=== PATIENT | female | born 1965 | race Caucasian/White ===

== ENCOUNTER 2018-06-05 20:04 | Observation (INO) | payer MEDICARE, MEDICAID, SELFPAY ==
[2018-06-05 20:06] VITALS: BP 109/57; PULSE 137; RESP 18; TEMP 36.8; O2SAT 98; BMI 29.2
--- NOTE | 2018-06-05 20:44 | ED.VIS.GEN ---
History of Present Illness Chief Complaint: General Illness Informant: Patient Onset: Today Timing: Intermittent Quality: Hemoptysis, epistaxis and generalized weakness Current Severity: Not applicable presently no bleeding or hemoptysis Maximum Severity: Mild Worsened by: Nothing Relieved by: Nothing Associated Symptoms: Rash Narrative: Middle-aged woman with metastatic colon cancer who presents with epistaxis, hemoptysis rash generalized weakness and believes she is dehydrated. She was seen on Wednesday at [place] and received IV fluids. Case was discussed with her oncologist Dr. Nicholas. She is on Xarelto because of pulmonary embolus. She denies fever, chills night sweats she denies shortness of breath but does report dyspnea on exertion. She denies chest pain. She denies abdominal pain or flank pain. She denies leg pain, swelling or discoloration. Prior similar symptoms: Yes Recent Illness/Hospitalization: Yes Past Medical History - Allergies and Home Meds Allergies/Adverse Reactions: Allergies latex Allergy (Verified 06/05/18 20:10) Rash Primary Care Physician: Mani Manzano MD [Primary Care Provider] - Past Medical History: - - Colon cancer with metastasis, pulmonary embolus Lives: Spouse/ Significant Other Smoking Status: Former smoker Alcohol: None Drugs: None Review of Systems General: Denies: Chills, Fever, Sweats Eyes: Denies: Visual changes - bilaterally, Blurred Vision - bilaterally, Diplopia ENT: Denies: Bilateral ear pain, Rhinorrhea, Sore throat Cardiovascular: Denies: Chest pain, Palpitations, Heart racing Respiratory: Reports: Cough - Patient reports hemoptysis.. Denies: Dyspnea, Dyspnea on exertion Gastrointestinal: Reports: - - She denies hematemesis.. Denies: Abdominal pain, Nausea, Vomiting, Diarrhea, Melena, Hematochezia Genitourinary: Denies: Dysuria, Hematuria, Frequency Musculoskeletal: Denies: Myalgias, Arthralgias, Back pain, Extremity Pain Skin: Denies: Rash, Wounds Neurological: Denies: Headache, Weakness, Numbness Psych: Reports: Depression Hematologic: Reports: Easy bruising, Easy bleeding Allergy: Denies: Uticaria, Swelling of the mouth Physical Exam Vital Signs/Narrative: Vital Signs Temp Pulse Resp BP Pulse Ox 06/05/18 20:06 98.3 F 137 H 18 109/57 L 98 Inital Vital Signs reviewed: Yes General: Well nourished, Well developed, No Acute Distress Head: Normocephalic, Atraumatic Eyes: Perrl, EOMI. Negative for: Scleral icterus ENT: No rhinorrhea, TM's clear, Dry mucous membranes Neck: Supple, Nontender, No lymphadenopathy, No JVD, - Cardiovascular: Regular rhythm, No murmurs, Normal S1, Normal S2, Tachycardia Respiratory: No distress, Chest nontender, Rales, Diminished Abdomen: Soft, Nontender, Nondistended, Normal bowel sounds, No masses Back: Nontender, Normal Inspection Extremities: Nontender, No edema, - - There is no asymmetry, swelling, discoloration, leg vein distention, palpable cords or tenderness along the distribution of the deep venous system. Skin: Normal color, No rash. Negative for: Cyanosis, Jaundice Neurological: Alert, Oriented x3, Cranial nerves II-XII grossly intact, Normal Strength, Normal Sensation Psychological: Normal affect, Normal Mood Diagnostic/Tx/Re-eval Chest X-Ray - ED: 2 View, Read by ED Physician, Normal, Heart, Bony Structures, - - There is a right hilar mass that is new since November 13, 2016. Port is noted to be in proper position. There is no evidence of effusion or pneumothorax. 06/05/18 20:56 Chest PA and Lateral [RAD] Stat Laboratory Results 06/05/18 06/05/18 20:40 20:40 WBC 3.8 L RBC 5.11 Hgb 13.4 Hct 39.9 MCV 78.1 L MCH 26.2 L MCHC 33.6 RDW 13.4 RDW Differential 37.8 Plt Count 80 L MPV 8.9 Immature Gran % (Auto) 0.300 Neut % (Auto) 63.0 Lymph % (Auto) 11.2 L [place] % (Auto) 4.4 Eos % (Auto) 21.1 H Baso % (Auto) 0.0 Absolute Neuts (auto) 2.4 Absolute Lymphs (auto) 0.43 L Sodium 136 Potassium 3.4 L Chloride 103 Carbon Dioxide 25.0 Anion Gap 8 BUN 11 Creatinine 0.69 Estim Creat Clear Calc 81.42 Est GFR (MDRD) Af Amer 114 Est GFR (MDRD) Non-Af 94 BUN/Creatinine Ratio 15.9 Glucose 134 H Calcium 8.3 L PTT is 98.8. PT and INR 1.5 and 1.7 respectively. This may be secondary to Xarelto. Redraw to confirm. - Medical Decision Making With history of colon cancer tachycardia hemoptysis differential includes pulmonary embolus, pneumonia, bronchitis with hemoptysis, need to assess for DIC. Chest x-rays obtained to assess for pneumonia. If chest x-ray is unremarkable will obtain CTA to assess for pulmonary embolus. CBC was obtained to assess white count differential and H&H since she has history of anemia. Basic medical panel was obtained to assess electrolyte and more importantly renal function. Case was discussed with her oncologist Dr. Christopher Nicholas. He recommended discontinuing the chemo medication and Xarelto. Further observation with repeat CBC to assess H&H, white count and platelets. He will see her in the morning. Therefore, will page hospitalist for 23 observation for hemoptysis and epistaxis this most likely is a complication of her chemo medication and Xarelto. She does have history of pulmonary embolus. The mass noted on x-ray is not new. 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
[2018-06-05 20:46] VITALS: BP 105/79; PULSE 119; RESP 18; TEMP 36.8; O2SAT 98
[2018-06-05] MEDS: 0.9% Normal Saline 1,000 ML 1000 ML IV (20:52)
--- NOTE | 2018-06-05 20:56 | RAD_ITS ---
STUDY: X-RAY CHEST REASON FOR EXAM: Female, 53 years old. Weakness. TECHNIQUE: PA and lateral views of the chest. COMPARISON: November 13, 2016 FINDINGS: There is a new 2.8 x 2.7 spiculated opacity within the right suprahilar region. There is a Mediport in place terminating within the superior vena cava. Normal size heart. Normal mediastinum and terrell. Normal visualized pulmonary arteries. Normal visualized aortic arch and descending thoracic aorta. Normal visualized thoracic spine. Normal visualized ribs, clavicles, and shoulders. There is no demonstrated abnormality of the visualized soft tissue structures of the upper abdomen. RAD/Chest PA and Lateral IMPRESSION: Spiculated nodular opacity within the right suprahilar region suspicious for an underlying malignancy. Electronically Signed: Laya Resendiz MD at 21:38 EDT Tel , Service support ,
[2018-06-05 21:01] LABS: International Normalized Ratio 1.7
[2018-06-05 21:01] LABS: Absolute Lymphocyte Count 0.43 X10^3/ul (0.83-4.51); Absolute Neutrophil Count 2.4 X10^3/uL (2.0-7.7); Eosinophil# 0.81 X10^3/uL; Eosinophils% 21.1 % (0-5); Hematocrit 39.9 % (37-47); Hemoglobin 13.4 g/dl (12.0-15.0); Lymphocyte # 0.43 X10^3/ul (4.0); Lymphocyte % 11.2 % (19-41); Mean Corp Hgb Conc 33.6 g/gl (32-36); Mean Corpuscular Hgb 26.2 pg (27.0-32.0); Mean Corpuscular Volume 78.1 fL (81-99); Mean Platelet Vol. 8.9 fl (6.2-12.0); Monocyte# 0.17 X10^3/uL; Monocyte% 4.4 % (0-10); Neutrophil # 2.42 X10^3/uL (2.7-7.7); Platelet Count 80 K/mm3 (150-450); RBC Distribution Width CV 13.4 % (11.6-14.6); RBC Distribution Width SD 37.8 fl (35.1-43.9); Red Blood Count 5.11 M/mm3 (4.2-5.4); White Blood Count 3.8 K/mm3 (4.4-11.0)
[2018-06-05 21:03] LABS: Differential Indicated SCAN CRITERIA MET; POSITIVE COUNT NO; POSITIVE DIFFERENTIAL YES; POSITIVE MORPHOLOGY NO
[2018-06-05 21:07] LABS: Anion Gap 8 (5-15); BUN 11 mg/dL (7-18); BUN/Creat Ratio 15.9 RATIO (10-20); Calcium,Total 8.3 mg/dL (8.5-10.1); Chloride 103 mmol/L (98-107); Creatinine, Serum 0.69 mg/dL (0.55-1.02); EST Glomerular Filtration Rate 94 mL/min (>60); Est Glom Filt Rate - Afr Amer 114 mL/min (>60); Estimated Creatinine Clearance 81.42 ml/min; Glucose 134 mg/dL (74-106); Potassium 3.4 mmol/L (3.5-5.1); Sodium Level 136 mmol/L (136-145)
[2018-06-05 21:16] LABS: Differential Comment SCANNED
[2018-06-05 21:30] LABS: Partial Thromboplast Time 47.4 Seconds (24.1-36.2)
[2018-06-05 21:43] LABS: Prothrombin Time (Protime)PT. 19.4 SECONDS (11.7-14.9)
[2018-06-05 23:03] VITALS: BP 111/80; PULSE 112; RESP 14; TEMP 37.6; O2SAT 97
--- NOTE | 2018-06-05 23:22 | PCM.HP.STD ---
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 She states that she has had colon cancer with mets to the lung and intrathoracic lymph nodes for the last 6 to 7 years. She initially was diagnosed at an advanced age and has been undergoing chemotherapy ever since. She started a new chemotherapy agent and it was also started on Xarelto for history of pulmonary embolism. Since she started the new chemotherapy she has had a burning sensation on her right foot as well as a generalized rash. Today she coughed and coughed up a blood clot and went to blow her nose and had large blood clot there as well. She presented to the ER, without lightheadedness, dizziness, chest pain, shortness of breath. However on lab work she was found to have a lately count of 80,000 and the case was discussed with her oncologist who recommended admission for overnight observation. Past Medical History Allergies latex Allergy (Verified 06/05/18 20:10) Rash Home Medications: Ambulatory Orders Medication Instructions Recorded Hydrocodone/Acetaminophen 2 tab PO Q6H PRN 11/13/16 [Hydrocodon-Acetaminophen 5-325] Lorazepam [Ativan] 1 tab PO Q8H PRN 11/13/16 Nystatin 5 ml PO 4X/DAY 11/13/16 Rivaroxaban [Xarelto] 1 tab PO DAILY 11/13/16 Surgical History: cholecystectomy Lives: Spouse/ Significant Other Smoking Status: Former smoker Alcohol: None Drugs: None - *Family History Maternal History Items: No pertinent history Paternal History Items: No pertinent history Review of Systems Constitutional: Denies: Chills, Fever, Weight Change HEENT: Reports: Nasal bleeding. Denies: Head Aches, Sinus Congestion, Sinus Drainage Cardiovascular: Denies: Chest Pain, Palpitations Respiratory: Reports: Hemoptysis. Denies: Cough, Shortness of breath at rest, Sputum production Gastrointestinal: Denies: Abdominal Pain, Nausea, Vomiting Genitourinary: Denies: Dysuria Musculoskeletal: Reports: Foot Pain. Denies: Joint Pain, Joint Tenderness Skin: Reports: Rash. 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 (Acute) Thrombocytopenia (Acute) - Physical Exam General: Alert, Oriented x3, Cooperative, No apparent distress HEENT: Atraumatic, PERRLA, EOMI, Normocephalic Oral: Dry Mucosa Neck: Supple, No JVD Lungs: Clear to auscultation, Normal air movement, No rhonchi, No wheeze, No rales Cardiovascular: Regular rate, Regular Rhythm, Normal S1, Normal S2, No murmurs Abdomen: Soft, Non-Distended, No Hepato-splenomegaly, Tender - Chronic mild tenderness to upper abdomen Extremities: No edema, Capillary Refill Less than 3 Seconds, - - Of burning pain sensation on the bottom of her right foot Skin: Rash Present - Blanching petechial rash on both legs Neurological: Neuro grossly intact, Sensory exam intact to light touch and pain Psych/Mental Status: Normal Affect, Appropriate Vital Signs Temp Pulse Resp BP Pulse Ox 99.6 F H 112 H 14 111/80 97 06/05/18 23:03 06/05/18 23:03 06/05/18 23:03 06/05/18 23:03 06/05/18 23:03 Oxygen Delivery Method Room Air Weight: 170 lb Body Mass Index (BMI) 29.2 Laboratory Tests Past 24 Hrs 06/05/18 06/05/18 06/05/18 20:40 20:40 21:14 WBC 3.8 L RBC 5.11 Hgb 13.4 Hct 39.9 MCV 78.1 L MCH 26.2 L MCHC 33.6 RDW 13.4 RDW Differential 37.8 Plt Count 80 L MPV 8.9 Immature Gran % (Auto) 0.300 Neut % (Auto) 63.0 Lymph % (Auto) 11.2 L [place] % (Auto) 4.4 Eos % (Auto) 21.1 H Baso % (Auto) 0.0 Absolute Neuts (auto) 2.4 Absolute Lymphs (auto) 0.43 L Total Counted Not Reportable Differential Comment SCANNED PT 19.4 H INR 1.7 APTT 47.4 H Sodium 136 Potassium 3.4 L Chloride 103 Carbon Dioxide 25.0 Anion Gap 8 BUN 11 Creatinine 0.69 Estim Creat Clear Calc 81.42 Est GFR (MDRD) Af Amer 114 Est GFR (MDRD) Non-Af 94 BUN/Creatinine Ratio 15.9 Glucose 134 H Calcium 8.3 L Assessment/Plan All Active Problems Hemoptysis (Acute) Epistaxis (Acute) FPC current use of anticoagulant (Acute) Colon cancer 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 Generalized blanching macular rash/stage IV colon cancer undergoing chemotherapy/thrombocytopenia/hemoptysis and epistaxis/history of PE/RLE neuropathy -Her rash and her thrombocytopenia as well as her right foot pain is likely related to this new chemotherapy agent that she is on. -The pain description on the right foot as well as a sensation of feeling of burning fits with chemotherapy neuropathy. -We will hold her chemotherapy as well as her Xarelto given the hemoptysis and epistaxis -Consult to oncology -Repeat CBC in the morning to monitor thrombocytopenia DVT: Ambulation Code Visit OBSV E&M: [id number] Initial observation care L2
[2018-06-06] VITALS (7 sets, daily range): BP systolic 102–117; BP diastolic 60–80; PULSE 94–118; RESP 15–18; TEMP 36.5–37; O2SAT 97–98; BMI 29.3; BMI 29.4
[2018-06-06] MEDS: Acetaminophen 325 MG Tablet 650 MG PO (03:31)
[2018-06-06] MEDS: 0.9% NaCl VAD Flush 10 ML IV ×2 (04:55→17:20)
[2018-06-06 05:19] LABS: Anion Gap 6 (5-15); BUN 9 mg/dL (7-18); BUN/Creat Ratio 16.3 RATIO (10-20); Calcium,Total 8.3 mg/dL (8.5-10.1); Chloride 106 mmol/L (98-107); Creatinine, Serum 0.55 mg/dL (0.55-1.02); EST Glomerular Filtration Rate 122 mL/min (>60); Est Glom Filt Rate - Afr Amer 148 mL/min (>60); Estimated Creatinine Clearance 102.15 ml/min; Glucose 120 mg/dL (74-106); Potassium 3.8 mmol/L (3.5-5.1); Sodium Level 140 mmol/L (136-145)
[2018-06-06 05:27] LABS: Absolute Lymphocyte Count 0.48 X10^3/ul (0.83-4.51); Absolute Neutrophil Count 1.6 X10^3/uL (2.0-7.7); Basophil# 0.01 X10^3/uL; Basophil% 0.3 % (0-1); Eosinophil# 0.68 X10^3/uL; Eosinophils% 22.4 % (0-5); Hematocrit 35.8 % (37-47); Hemoglobin 11.9 g/dl (12.0-15.0); Lymphocyte # 0.48 X10^3/ul (4.0); Lymphocyte % 15.8 % (19-41); Mean Corp Hgb Conc 33.2 g/gl (32-36); Mean Corpuscular Hgb 26.2 pg (27.0-32.0); Mean Corpuscular Volume 78.7 fL (81-99); Monocyte# 0.29 X10^3/uL; Monocyte% 9.5 % (0-10); Neutrophil # 1.57 X10^3/uL (2.7-7.7); Neutrophil % 51.7 % (47-70); Platelet Count 76 K/mm3 (150-450); RBC Distribution Width CV 13.7 % (11.6-14.6); RBC Distribution Width SD 38.8 fl (35.1-43.9); Red Blood Count 4.55 M/mm3 (4.2-5.4)
[2018-06-06 05:45] LABS: Differential Indicated SCAN CRITERIA MET; POSITIVE COUNT NO; POSITIVE DIFFERENTIAL YES; POSITIVE MORPHOLOGY NO
[2018-06-06 06:51] LABS: Differential Comment SCANNED
--- NOTE | 2018-06-06 09:44 | CASEMGMT ---
Social Work Note Per production operations inspector questions, pt hasn't completed advanced directives and doesn't want information. Cristina Fernandez ALTERATION TAILOR, SLEEVE IRONER
[2018-06-06] MEDS: predniSONE 20 MG Tablet 60 MG PO (12:15)
--- NOTE | 2018-06-06 13:44 | CON.PCM_ITS ---
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 Salazar regarding patient with metastatic adenocarcinoma (GI origin) who presented with thrombocytopenia, rash & epistaxis. My final recommendation will be communicated to Dr. Novoa and also by electronic medical records. - Reason for Consult Generalized rash, thrombocytopenia and epistaxis History of Present Illness Date of Admission: 06/05/18 Chief Complaint: Hemoptysis and epistaxis secondary to thrombocytopenia; rash, hand-foot (dermatitis) symptoms The patient is a 53 year old F with PMH as below who presents to [facility] after having an episode of hemoptysis and epistaxis. She states that she has had colon cancer with mets to the lung and intrathoracic lymph nodes for the last 6 to 7 years. She initially was diagnosed at an advanced age and has been undergoing chemotherapy ever since. She started STAVAGA 2 weeks ago, and it was also on Xarelto for history of upper extremity DVT. Since she started the new drug she has had a burning sensation on her right foot as well as a generalized rash. She was seen in the emergency room earlier last week for fatigue, her blood pressure is normal. Today, she coughed and coughed up a blood clot and went to blow her nose and had large blood clot there as well. She presented to the ER, without lightheadedness, dizziness, chest pain, shortness of breath. However on lab work she was found to have a lately count of 80,000. Her treatment was held yesterday and we stop her Xarelto today. He denies any itching on her skin but does still complain of sores on the bottom of her feet. He has no more bleeding issues since yesterday. Past Medical History Allergies latex Allergy (Verified 06/05/18 20:10) Rash Home Medications: Ambulatory Orders Medication Instructions Recorded Hydrocodone/Acetaminophen 2 tab PO Q6H PRN 11/13/16 [Hydrocodon-Acetaminophen 5-325] Lorazepam [Ativan] 1 tab PO Q8H PRN 10/06/17 Nystatin 5 ml PO 4X/DAY 11/13/16 Rivaroxaban [Xarelto] 1 tab PO DAILY 11/13/16 Surgical History: cholecystectomy Lives: Spouse/ Significant Other Smoking Status: Former smoker Alcohol: None Drugs: None - *Family History Maternal History Items: No pertinent history Paternal History Items: No pertinent history Review of Systems Constitutional: Denies: Chills, Fever, Weight Change HEENT: Reports: Nasal bleeding. Denies: Head Aches, Sinus Congestion, Sinus Drainage Cardiovascular: Denies: Chest Pain, Palpitations Respiratory: Reports: Hemoptysis. Denies: Cough, Shortness of breath at rest, Sputum production Gastrointestinal: Denies: Abdominal Pain, Nausea, Vomiting Genitourinary: Denies: Dysuria Musculoskeletal: Reports: Foot Pain. Denies: Joint Pain, Joint Tenderness Skin: Reports: Rash. 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 (Acute) Thrombocytopenia (Acute) - Physical Exam General: Alert, Oriented x3, Cooperative, No apparent distress HEENT: Atraumatic, PERRLA, EOMI, Normocephalic Oral: Dry Mucosa Neck: Supple, No JVD Lungs: Clear to auscultation, Normal air movement, No rhonchi, No wheeze, No rales Cardiovascular: Regular rate, Regular Rhythm, Normal S1, Normal S2, No murmurs Abdomen: Soft, Non-Distended, No Hepato-splenomegaly, Tender - Chronic mild tenderness to upper abdomen Extremities: No edema, Capillary Refill Less than 3 Seconds, - - Of burning pain sensation on the bottom of her right foot Skin: Generalized rash; no petechiae. No ecchymosis. Increased erythema on her soles, no skin exfoliation. Neurological: Neuro grossly intact, Sensory exam intact to light touch and pain Psych/Mental Status: Normal Affect, Appropriate Vital Signs Temp Pulse Resp BP Pulse Ox 99.6 F H 112 H 14 111/80 97 06/05/18 23:03 06/05/18 23:03 06/05/18 23:03 06/05/18 23:03 06/05/18 23:03 Oxygen Delivery Method Room Air Weight: 170 lb Body Mass Index (BMI) 29.2 Laboratory Tests Past 24 Hrs 06/05/18 06/05/18 06/05/18 20:40 20:40 21:14 WBC 3.8 L RBC 5.11 Hgb 13.4 Hct 39.9 MCV 78.1 L MCH 26.2 L MCHC 33.6 RDW 13.4 RDW Differential 37.8 Plt Count 80 L MPV 8.9 Immature Gran % (Auto) 0.300 Neut % (Auto) 63.0 Lymph % (Auto) 11.2 L [place] % (Auto) 4.4 Eos % (Auto) 21.1 H Baso % (Auto) 0.0 Absolute Neuts (auto) 2.4 Absolute Lymphs (auto) 0.43 L Total Counted Not Reportable Differential Comment SCANNED PT 19.4 H INR 1.7 APTT 47.4 H Sodium 136 Potassium 3.4 L Chloride 103 Carbon Dioxide 25.0 Anion Gap 8 BUN 11 Creatinine 0.69 Estim Creat Clear Calc 81.42 Est GFR (MDRD) Af Amer 114 Est GFR (MDRD) Non-Af 94 BUN/Creatinine Ratio 15.9 Glucose 134 H Calcium 8.3 L Assessment/Plan All Active Problems Hemoptysis (Acute) Epistaxis (Acute) long-term current use of anticoagulant (Acute) Colon cancer 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 Nicholas. -Generalized rash, hand-foot (dermatitis), thrombocytopenia associated with her treatment. -History of DVT of her upper extremity currently resolved on Xarelto Recommendations: -Stop Xarelto because of bleeding and thrombocytopenia -STARVAGA held till she see Dr. Nicholas later this week. -Topical steroid/clindamycin topical or short course of oral Solu-Medrol taper over 5 to 7 days. -Lotion on feet -May resume treatment at lower dose when excessive toxicity resolved. cc: Dr. Christopher Nicholas, Dr. Neville Salazar, Dr. Mani Manzano
--- NOTE | 2018-06-06 16:52 | PCM.DC ---
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 Allergies/Adverse Reactions: Allergies famotidine [From Pepcid] Allergy (Verified 06/06/18 13:24) Shortness of breath latex Allergy (Verified 06/05/18 20:10) Rash Medications to take at Discharge Hydrocodone/Acetaminophen [Hydrocodone-Acetamin 5-325 mg] 1 tab PO Q6H PRN 11/13/16 Lorazepam [Ativan] 1 tab PO Q8H PRN 11/13/16 DiphenhydrAMINE [Benadryl] 25 mg PO Q4H PRN #1 capsule 06/06/18 predniSONE tablet 2 tab PO DAILY@0800 #8 tablet 06/06/18 The following prescriptions were given: DiphenhydrAMINE [Benadryl] 25 mg PO Q4H PRN #1 capsule PRN Reason: itching. rash predniSONE tablet 2 tab PO DAILY@0800 #8 tablet Primary Care Physician: Mani Manzano MD [Primary Care Provider] - Within 2 Weeks Test Results: Test results from this visit will be discussed in further detail at your follow-up appointment, if applicable. Please Follow Up With: Christopher Nicholas, DO When: this week
--- NOTE | 2018-06-06 16:55 | DCINST_ITS ---
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 Allergies/Adverse Reactions: Allergies famotidine [From Pepcid] Allergy (Verified 06/06/18 13:24) Shortness of breath latex Allergy (Verified 06/05/18 20:10) Rash Medications to take at Discharge Hydrocodone/Acetaminophen [Hydrocodone-Acetamin 5-325 mg] 1 tab PO Q6H PRN 11/13/16 Lorazepam [Ativan] 1 tab PO Q8H PRN 11/13/16 DiphenhydrAMINE [Benadryl] 25 mg PO Q4H PRN #1 capsule 06/06/18 predniSONE tablet 2 tab PO DAILY@0800 #8 tablet 06/06/18 The following prescriptions were given: DiphenhydrAMINE [Benadryl] 25 mg PO Q4H PRN #1 capsule PRN Reason: itching. rash predniSONE tablet 2 tab PO DAILY@0800 #8 tablet Primary Care Physician: Mani Manzano MD [Primary Care Provider] - Within 2 Weeks Test Results: Test results from this visit will be discussed in further detail at your follow- up appointment, if applicable. Please Follow Up With: Christopher Nicholas, DO When: this week
--- NOTE | 2018-06-06 16:55 | PCM.DC.SUM ---
Discharge Date and Diagnosis - Problem List Patient Problems: Active and Suspected Problems Drug rash (Acute) Hemoptysis (Acute) Epistaxis (Acute) Thrombocytopenia (Acute) Secondary to chemotherapy Date of Admission: 06/05/18 Date of Discharge: 06/06/18 - Primary Discharge Diagnosis Active and Suspected Problems Drug rash (Acute) Hemoptysis (Acute) Epistaxis (Acute) Thrombocytopenia (Acute) Secondary to chemotherapy - Secondary Discharge Diagnosis Chronic Problems [facility] current use of anticoagulant (Chronic) History of DVT of the upper extremity Colon cancer metastasized to intrathoracic lymph node (Chronic) Hospital Course and Treatment Imaging Results: Clinical Impression(s) from Imaging Studies Chest X-Ray 06/05/18 20:56 IMPRESSION: Spiculated nodular opacity within the right suprahilar region suspicious for an underlying malignancy. Electronically Signed: Laya Resendiz MD at 21:38 EDT Tel , Service support , Shobha Bledsoe: oncology. Operations: None Procedures: None Summary of Care Provided: The patient is a 53 year old F resents with rash, hemoptysis and epistaxis. The mild this is related with her epistaxis and epistaxis likely attributable to thrombus cytopenia but also concomitant Xarelto use. That resolved spontaneously. Discussed with Dr. Nicholas recommend holding off on Xarelto for the time being. Patient also developed a rash most notably on her arms but then progressed elsewhere particular on her feet. Rash was consistent with a drug rash and more particularly a hand/foot/skin rash that is commonly associated with her immunotherapy, Stirviga. Discussed with Dr. García and he is going to hold off on that medication. Patient was started on prednisone today and the patient has noted some improvement. I discussed with the patient the risks of Perez-Sarthak's and toxic epidermal necrolysis and expanded her that if her rash does get worse or if she has signs or symptoms of angioedema to notify physician or return to the emergency room. [] Patient Problems: Active and Suspected Problems Drug rash (Acute) Hemoptysis (Acute) Epistaxis (Acute) Thrombocytopenia (Acute) Secondary to chemotherapy - Physical Exam General: Alert, No apparent distress HEENT: Atraumatic, Normocephalic Oral: Moist Mucosa, No Gingival or Mucosal Lesions/ Ulcerations Skin: - - Maculopapular rash noted on upper extremities, palms of her hands, soles of her feet. On reevaluation appeared to be a little more muted but still diffuse. Psych/Mental Status: Normal Affect, Appropriate Vital Signs Temp Pulse Resp BP Pulse Ox 37.0 C 99 18 111/74 98 06/06/18 13:40 06/06/18 13:40 06/06/18 13:40 06/06/18 13:40 06/06/18 13:40 Oxygen Delivery Method Room Air Weight: 77.6 kg Body Mass Index (BMI) 29.3 Intake and Output for Last 24 Hours 06/04/18 06/05/18 06/06/18 23:59 23:59 23:59 Intake Total 460 / 460 Balance 460 / 460 Laboratory Tests Past 24 Hrs 06/05/18 06/05/18 06/05/18 20:40 20:40 21:14 WBC 3.8 L RBC 5.11 Hgb 13.4 Hct 39.9 MCV 78.1 L MCH 26.2 L MCHC 33.6 RDW 13.4 RDW Differential 37.8 Plt Count 80 L MPV 8.9 Immature Gran % (Auto) 0.300 Neut % (Auto) 63.0 Lymph % (Auto) 11.2 L [place] % (Auto) 4.4 Eos % (Auto) 21.1 H Baso % (Auto) 0.0 Absolute Neuts (auto) 2.4 Absolute Lymphs (auto) 0.43 L Total Counted Not Reportable Differential Comment SCANNED Diff Path Review PT 19.4 H INR 1.7 APTT 47.4 H Sodium 136 Potassium 3.4 L Chloride 103 Carbon Dioxide 25.0 Anion Gap 8 BUN 11 Creatinine 0.69 Estim Creat Clear Calc 81.42 Est GFR (MDRD) Af Amer 114 Est GFR (MDRD) Non-Af 94 BUN/Creatinine Ratio 15.9 Glucose 134 H Calcium 8.3 L 06/06/18 06/06/18 04:53 04:53 WBC 3.0 L RBC 4.55 Hgb 11.9 L Hct 35.8 L MCV 78.7 L MCH 26.2 L MCHC 33.2 RDW 13.7 RDW Differential 38.8 Plt Count 76 L MPV 9.0 Immature Gran % (Auto) 0.300 Neut % (Auto) 51.7 Lymph % (Auto) 15.8 L [place] % (Auto) 9.5 Eos % (Auto) 22.4 H Baso % (Auto) 0.3 Absolute Neuts (auto) 1.6 L Absolute Lymphs (auto) 0.48 L Total Counted Not Reportable Differential Comment SCANNED Diff Path Review May foll PT INR APTT Sodium 140 Potassium 3.8 Chloride 106 Carbon Dioxide 28.0 Anion Gap 6 BUN 9 Creatinine 0.55 Estim Creat Clear Calc 102.15 Est GFR (MDRD) Af Amer 148 Est GFR (MDRD) Non-Af 122 BUN/Creatinine Ratio 16.3 Glucose 120 H Calcium 8.3 L Discharge Diet: No Restrictions Discharge Activity: Return to Normal Activity Call your doctor if you observe: Fever of 101 or Higher, - - worsening rash. Home Medications: Medications to take at Discharge Hydrocodone/Acetaminophen [Hydrocodone-Acetamin 5-325 mg] 1 tab PO Q6H PRN 11/13/16 Lorazepam [Ativan] 1 tab PO Q8H PRN 11/13/16 DiphenhydrAMINE [Benadryl] 25 mg PO Q4H PRN #1 capsule 06/06/18 predniSONE tablet 2 tab PO DAILY@0800 #8 tablet 06/06/18 Following Prescrptions Were Given to Patient: DiphenhydrAMINE [Benadryl] 25 mg PO Q4H PRN #1 capsule PRN Reason: itching. rash predniSONE tablet 2 tab PO DAILY@0800 #8 tablet Primary Care Physician: Mani Manzano MD [Primary Care Provider] - Within 2 Weeks Please Follow Up With: Christopher Nicholas DO When: this week Disposition: Home Minutes spent on discharge:: 35 Patient Condition:: Fair Medical Necessity - Tobacco Use Smoking Status: Former smoker Meaningful Use Info Meaningful Use Diagnoses (Choose all that apply): None applicable Code Visit OBSV E&M: 37690 Observation care discharge
--- NOTE | 2018-06-06 16:59 | DS.PCM_ITS ---
Discharge Date and Diagnosis - Problem List Patient Problems: Active and Suspected Problems Drug rash (Acute) Hemoptysis (Acute) Epistaxis (Acute) Thrombocytopenia (Acute) Secondary to chemotherapy Date of Admission: 06/05/18 Date of Discharge: 06/06/18 - Primary Discharge Diagnosis Active and Suspected Problems Drug rash (Acute) Hemoptysis (Acute) Epistaxis (Acute) Thrombocytopenia (Acute) Secondary to chemotherapy - Secondary Discharge Diagnosis Chronic Problems [facility] current use of anticoagulant (Chronic) History of DVT of the upper extremity Colon cancer metastasized to intrathoracic lymph node (Chronic) Hospital Course and Treatment Imaging Results: Clinical Impression(s) from Imaging Studies Chest X-Ray 06/05/18 20:56 IMPRESSION: Spiculated nodular opacity within the right suprahilar region suspicious for an underlying malignancy. Electronically Signed: Laya Resendiz MD at 21:38 EDT Tel , Service support , Shobha Bledsoe: oncology. Operations: None Procedures: None Summary of Care Provided: The patient is a 53 year old F resents with rash, hemoptysis and epistaxis. The mild this is related with her epistaxis and epistaxis likely attributable to t hrombus cytopenia but also concomitant Xarelto use. That resolved spontaneously. Discussed with Dr. Nicholas recommend holding off on Xarelto for the time being. Patient also developed a rash most notably on her arms but then progressed elsewhere particular on her feet. Rash was consistent with a drug rash and more particularly a hand/foot/skin rash that is commonly associated with her immunotherapy, Stirviga. Discussed with Dr. García and he is going to hold off on that medication. Patient was started on prednisone today and the patient has noted some improvement. I discussed with the patient the risks of Perez-Sarthak's and toxic epidermal necrolysis and expanded her that if her rash does get worse or if she has signs or symptoms of angioedema to notify physician or return to the emergency room. [] Patient Problems: Active and Suspected Problems Drug rash (Acute) Hemoptysis (Acute) Epistaxis (Acute) Thrombocytopenia (Acute) Secondary to chemotherapy - Physical Exam General: Alert, No apparent distress HEENT: Atraumatic, Normocephalic Oral: Moist Mucosa, No Gingival or Mucosal Lesions/ Ulcerations Skin: - - Maculopapular rash noted on upper extremities, palms of her hands, soles of her feet. On reevaluation appeared to be a little more muted but still diffuse. Psych/Mental Status: Normal Affect, Appropriate Vital Signs Temp Pulse Resp BP Pulse Ox 37.0 C 99 18 111/74 98 06/06/18 13:40 06/06/18 13:40 06/06/18 13:40 06/06/18 13:40 06/06/18 13:40 Oxygen Delivery Method Room Air Weight: 77.6 kg Body Mass Index (BMI) 29.3 Intake and Output for Last 24 Hours 06/04/18 06/05/18 06/06/18 23:59 23:59 23:59 Intake Total 460 / 460 Balance 460 / 460 Laboratory Tests Past 24 Hrs 06/05/18 06/05/18 06/05/18 20:40 20:40 21:14 WBC 3.8 L RBC 5.11 Hgb 13.4 Hct 39.9 MCV 78.1 L MCH 26.2 L MCHC 33.6 RDW 13.4 RDW Differential 37.8 Plt Count 80 L MPV 8.9 Immature Gran % (Auto) 0.300 Neut % (Auto) 63.0 Lymph % (Auto) 11.2 L [place] % (Auto) 4.4 Eos % (Auto) 21.1 H Baso % (Auto) 0.0 Absolute Neuts (auto) 2.4 Absolute Lymphs (auto) 0.43 L Total Counted Not Reportable Differential Comment SCANNED Diff Path Review PT 19.4 H INR 1.7 APTT 47.4 H Sodium 136 Potassium 3.4 L Chloride 103 Carbon Dioxide 25.0 Anion Gap 8 BUN 11 Creatinine 0.69 Estim Creat Clear Calc 81.42 Est GFR (MDRD) Af Amer 114 Est GFR (MDRD) Non-Af 94 BUN/Creatinine Ratio 15.9 Glucose 134 H Calcium 8.3 L 06/06/18 06/06/18 04:53 04:53 WBC 3.0 L RBC 4.55 Hgb 11.9 L Hct 35.8 L MCV 78.7 L MCH 26.2 L MCHC 33.2 RDW 13.7 RDW Differential 38.8 Plt Count 76 L MPV 9.0 Immature Gran % (Auto) 0.300 Neut % (Auto) 51.7 Lymph % (Auto) 15.8 L [place] % (Auto) 9.5 Eos % (Auto) 22.4 H Baso % (Auto) 0.3 Absolute Neuts (auto) 1.6 L Absolute Lymphs (auto) 0.48 L Total Counted Not Reportable Differential Comment SCANNED Diff Path Review May foll PT INR APTT Sodium 140 Potassium 3.8 Chloride 106 Carbon Dioxide 28.0 Anion Gap 6 BUN 9 Creatinine 0.55 Estim Creat Clear Calc 102.15 Est GFR (MDRD) Af Amer 148 Est GFR (MDRD) Non-Af 122 BUN/Creatinine Ratio 16.3 Glucose 120 H Calcium 8.3 L Discharge Diet: No Restrictions Discharge Activity: Return to Normal Activity Call your doctor if you observe: Fever of 101 or Higher, - - worsening rash. Home Medications: Medications to take at Discharge Hydrocodone/Acetaminophen [Hydrocodone-Acetamin 5-325 mg] 1 tab PO Q6H PRN 11/13/16 Lorazepam [Ativan] 1 tab PO Q8H PRN 11/13/16 DiphenhydrAMINE [Benadryl] 25 mg PO Q4H PRN #1 capsule 06/06/18 predniSONE tablet 2 tab PO DAILY@0800 #8 tablet 06/06/18 Following Prescrptions Were Given to Patient: DiphenhydrAMINE [Benadryl] 25 mg PO Q4H PRN #1 capsule PRN Reason: itching. rash predniSONE tablet 2 tab PO DAILY@0800 #8 tablet Primary Care Physician: Mani Manzano MD [Primary Care Provider] - Within 2 Weeks Please Follow Up With: Christopher Nicholas DO When: this week Disposition: Home Minutes spent on discharge:: 35 Patient Condition:: Fair Medical Necessity - Tobacco Use Smoking Status: Former smoker Meaningful Use Info Meaningful Use Diagnoses (Choose all that apply): None applicable Code Visit OBSV E&M: 38562 Observation care discharge
[2018-06-08 15:57] LABS: Pathologist Review Reviewed
== END 2018-06-06 17:40 | disposition home or self-care (01) ==
LOC: ED 22:43 → MS3 23:12
PROVIDERS: Admitting Provider Family Medicine; Emergency Provider Emergency Medicine; Family Provider Family Medicine; PCP Family Medicine
DX: L27.0 Generalized skin eruption due to drugs and medicaments taken internally (principal); T45.515A Adverse effect of anticoagulants, initial encounter; D69.59 Other secondary thrombocytopenia; R04.2 Hemoptysis; T45.1X5A Adverse effect of antineoplastic and immunosuppressive drugs, initial encounter; C18.9 Malignant neoplasm of colon, unspecified; C77.1 Secondary and unspecified malignant neoplasm of intrathoracic lymph nodes; C78.00 Secondary malignant neoplasm of unspecified lung; D68.32 Hemorrhagic disorder due to extrinsic circulating anticoagulants; R04.0 Epistaxis; E86.0 Dehydration; R06.09 Other forms of dyspnea; Z86.718 Personal history of other venous thrombosis and embolism; Z87.891 Personal history of nicotine dependence; Z79.01 Long term (current) use of anticoagulants; Z79.899 Other long term (current) drug therapy; Z86.711 Personal history of pulmonary embolism
CPT/HCPCS: 36591; 71046; 80048; 85025; 85610; 85730; 96361; 96374; 97802; 99218; 99283; A4216; G0378

== ENCOUNTER 2018-09-23 09:47 | Emergency (ER) | payer MEDICARE, MEDICAID, SELFPAY ==
[2018-09-23 09:47] VITALS: BMI 29.2
[2018-09-23 09:49] VITALS: BP 122/105; PULSE 147; RESP 19; TEMP 37.2; O2SAT 95; BMI 29.2
--- NOTE | 2018-09-23 10:12 | EKG12_ITS ---
Test Reason : N/V Blood Pressure : / mmHG Vent. Rate : 138 BPM Atrial Rate : 138 BPM P-R Int : 144 ms QRS Dur : 068 ms QT Int : 352 ms P-R-T Axes : 075 033 078 degrees QTc Int : 533 ms Sinus tachycardia Nonspecific T wave abnormality Abnormal ECG Confirmed by TYLER PATEL, MICHAEL ([id number]), state editor MARIANELA ESPINOSA ([id number]) on 09/27/2018 2:03:52 PM Referred By: NYDIA Confirmed By:JEANNE SCOTT MD
[2018-09-23] MEDS: Ondansetron 4 MG/2 ML Vial IV (10:34)
[2018-09-23] MEDS: 0.9% Normal Saline 1,000 ML 1000 ML IV ×2 (10:35→12:03)
--- NOTE | 2018-09-23 10:36 | ED.DCSUM_ITS ---
History of Present Illness Chief Complaint: Nausea/Vomiting Informant: Patient Onset: Days - Onset of nausea and vomiting September 19. She denies blood or coffee-ground emesis. Last bowel movement today Context: Sudden Onset Timing: Intermittent Quality: Nausea and vomiting Location: Not applicable Current Severity: Mild Maximum Severity: Moderate Worsened by: Nothing Relieved by: Nothing Associated Symptoms: Thirst, dry mouth, rapid heart rate of 170 and orthostatic Narrative: Patient is a 53-year-old woman with history of stage IV colon cancer diagnosed 5 years ago. She states she had no lesions in her colon. She was diagnosed with colon cancer based on genetic markers. She had a large lesion on her thyroid, one near her heart and spine. The thyroid lesion improved markedly after she was started on oral chemo medication by Dr. Nicholas. She denies fever, chills night sweats. She denies URI symptoms. She states she is had a chronic cough since December. She denies dysuria, frequency, urgency or hematuria. She denies abdominal pain. Prior similar symptoms: Yes Recent Illness/Hospitalization: Yes - Past Medical History (1) Hemoptysis Status: Acute (2) Colon cancer metastasized to intrathoracic lymph node Status: Chronic (3) long term current use of anticoagulant Status: Chronic Comment: History of DVT of the upper extremity Past Medical History - Allergies and Home Meds Allergies/Adverse Reactions: Allergies famotidine [From Pepcid] Allergy (Verified 09/23/18 09:48) Shortness of breath latex Allergy (Verified 09/23/18 09:48) Rash Primary Care Physician: Mani Manzano MD [Primary Care Provider] - Prior records reviewed: Yes Surgical History: cholecystectomy Lives: With Family Smoking Status: Never smoker Alcohol: None Drugs: None - Family History Maternal Family History: Reports: No pertinent history Paternal Family History: Reports: No pertinent history Review of Systems General: Reports: Chills, Malaise, Sweats, Weight loss. Denies: Fever Eyes: Denies: Visual changes - bilaterally, Blurred Vision - bilaterally, Diplopia ENT: Denies: Left ear pain, Right ear pain, Rhinorrhea, Sore throat Cardiovascular: Reports: Palpitations. Denies: Chest pain, Heart racing, -, - Respiratory: Denies: Dyspnea, Cough, Dyspnea on exertion Gastrointestinal: Reports: Nausea, Vomiting. Denies: Abdominal pain, Diarrhea, Constipation, Melena, Hematochezia, -, - Genitourinary: Denies: Dysuria, Hematuria, Frequency Musculoskeletal: Denies: Myalgias, Arthralgias, Neck pain, Back pain, Swelling, Extremity Pain, -, - Skin: Denies: Rash, Wounds Neurological: Reports: Weakness. Denies: Headache, Parasthesia, Numbness, -, - Hematologic: Denies: Easy bruising, Easy bleeding Allergy: Denies: Uticaria, Swelling of the mouth, Swelling of the tongue Physical Exam Vital Signs/Narrative: Vital Signs Temp Pulse Resp BP Pulse Ox 09/23/18 09:49 98.9 F 147 H 19 H 122/105 H 95 Inital Vital Signs reviewed: Yes General: Well nourished, Well developed, No Acute Distress Head: Normocephalic, Atraumatic Eyes: Perrl, EOMI. Negative for: Pale conjunctiva, Scleral icterus, - ENT: No rhinorrhea, TM's clear, Dry mucous membranes Neck: Supple, Nontender, No lymphadenopathy, No JVD Cardiovascular: Regular rhythm, No murmurs, Normal S1, Normal S2, Tachycardia Respiratory: No distress, CTA bilaterally, Chest nontender Abdomen: Soft, Nontender, Nondistended, Normal bowel sounds, No masses Back: Nontender, Normal Inspection. Negative for: CVA tenderness Extremities: Nontender, No edema. Negative for: Calf Tenderness Skin: Normal color, No rash, No Trauma. Negative for: Cyanosis, Diaphoresis, Jaundice Neurological: Alert, Oriented x3, Cranial nerves II-XII grossly intact, Normal Strength, Normal Sensation Psychological: Normal affect Diagnostic/Tx/Re-eval Laboratory Results 09/23/18 09/23/18 09/23/18 10:37 10:37 12:53 WBC 7.3 RBC 5.84 H Hgb 15.5 H Hct 46.6 MCV 79.8 L MCH 26.5 L MCHC 33.3 RDW Std Deviation 37.0 RDW Coeff of [place] 13.0 Plt Count 309 MPV 8.1 Immature Gran % (Auto) 0.400 Neut % (Auto) 84.4 H Lymph % (Auto) 6.2 L [place] % (Auto) 7.5 Eos % (Auto) 1.4 Baso % (Auto) 0.1 Absolute Neuts (auto) 6.2 Absolute Lymphs (auto) 0.45 L Nucleated RBC % 0 Differential Comment COMMENT Sodium 139 Potassium 3.6 Chloride 106 Carbon Dioxide 23.0 Anion Gap 10 BUN 11 Creatinine 0.76 Estim Creat Clear Calc 73.92 Est GFR (MDRD) Af Amer 102 Est GFR (MDRD) Non-Af 85 BUN/Creatinine Ratio 14.5 Glucose 114 H Calcium 9.4 Total Bilirubin 0.40 AST 14 L ALT 14 Alkaline Phosphatase 154 H Total Protein 7.7 Albumin 3.1 L Globulin 4.6 H Albumin/Globulin Ratio 0.7 L Urine Color Yellow Urine Clarity Sl. Cloudy Urine pH 6.0 Ur Specific [place] 1.010 Urine Protein 15 H Urine Glucose (UA) Normal Urine Ketones 5 H Urine Occult Blood 10 H Urine Nitrite Negative Urine Bilirubin Negative Urine Urobilinogen Normal Ur Leukocyte Esterase 25 H Urine RBC 0 SEEN Urine WBC 0 SEEN Ur Squamous Epith Cells 0-5 SEEN Urine Bacteria 0 SEEN Hyaline Casts 0-5 SEEN Urine Mucus 2+ Urine reveals ketones. [place] is 1.010 which is not elevated. Patient has improved after 2 L of fluid and multiple glasses of water. - EKG Initial EKG Interpretation: Sinus Tachycardia - Trickle rate is 138. ND interval is 144 ms. QRS duration 68 ms. QT duration 3 and 52 ms. [employer] is normal. There is evidence of nonspecific ST-T wave changes noted. - Medical Decision Making EKG was obtained to assess rhythm. Clinically she is dehydrated. 1 L of normal saline was ordered. Basic metabolic panel was obtained to assess for kidney function and specifically acute kidney injury as well as elect lites and acid- base status. He was reassessed at 1200. Heart rate is improved. She looks better. She reports feeling better. She has had 1 L of fluid and consumes 3 cups of water. She still has no urge to urinate. Additional liter of normal saline was ordered. CBC and BMP are unremarkable. 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
[2018-09-23 10:48] LABS: Absolute Lymphocyte Count 0.45 X10^3/uL (0.83-4.51); Absolute Neutrophil Count 6.2 X10^3/uL (2.0-7.7); Basophil# 0.01 X10^3/uL; Basophil% 0.1 % (0-1); Eosinophils% 1.4 % (0-5); Hematocrit 46.6 % (37-47); Hemoglobin 15.5 g/dL (12.0-15.0); Lymphocyte # 0.45 X10^3/ul (4.0); Lymphocyte % 6.2 % (19-41); Mean Corp Hgb Conc 33.3 g/dL (32-36); Mean Corpuscular Hgb 26.5 pg (27.0-32.0); Mean Corpuscular Volume 79.8 fL (81-99); Mean Platelet Vol. 8.1 fl (6.2-12.0); Monocyte# 0.55 X10^3/uL; Monocyte% 7.5 % (0-10); NRBC Flagged by Analyzer 0 % (0-5); Neutrophil # 6.15 X10^3/uL (2.7-7.7); Neutrophil % 84.4 % (47-70); POSITIVE DIFFERENTIAL YES; Platelet Count 309 K/mm3 (150-450); Red Blood Count 5.84 M/mm3 (4.2-5.4); White Blood Count 7.3 K/mm3 (4.4-11.0)
[2018-09-23 10:52] LABS: Differential Indicated SCAN CRITERIA MET
[2018-09-23 11:14] LABS: ALB/GLOB Ratio 0.7 RATIO (0.9-2.4); AST(SGOT) 14 U/L (15-37); Alanine Aminotransfer ALT/SGPT 14 U/L (13-56); Albumin, Serum 3.1 g/dL (3.2-5.0); Alkaline Phosphatase 154 U/L (45-117); Anion Gap 10 (5-15); BUN 11 mg/dL (7-18); BUN/Creat Ratio 14.5 RATIO (10-20); Calcium,Total 9.4 mg/dL (8.5-10.1); Chloride 106 mmol/L (98-107); Creatinine, Serum 0.76 mg/dL (0.55-1.02); EST Glomerular Filtration Rate 85 mL/min (>60); Est Glom Filt Rate - Afr Amer 102 mL/min (>60); Estimated Creatinine Clearance 73.92 ml/min; Globulin 4.6 g/dL (2.2-4.2); Glucose 114 mg/dL (74-106); Potassium 3.6 mmol/L (3.5-5.1); Protein, Total 7.7 g/dL (6.4-8.2); Sodium Level 139 mmol/L (136-145)
[2018-09-23 11:43] VITALS: BP 101/74; PULSE 119; RESP 19; O2SAT 97
[2018-09-23 12:58] LABS: Bacteria 0 SEEN /hpf (None Seen); Red Blood Cells-Urine 0 SEEN /hpf (0-5); White Blood Cells 0 SEEN /hpf (0-5)
[2018-09-23 12:59] VITALS: BP 101/68; PULSE 117; RESP 19; O2SAT 97
[2018-09-23 12:59] LABS: Color, Urine Yellow (Yellow); Glucose, Dipstick Normal (Normal); Ketone-Dipstick 5 mg/dl (Negative); Leukocyte Esterase-Dipstick 25 /ul (Negative); Nitrite-Dipstick Negative (Negative); Occult Blood-Urine 10 /ul (Negative); Protein-Dipstick 15 mg/dl (Negative); Urine Bilirubin Dipstick Negative (Negative); Urine Clarity Sl. Cloudy (Clear); Urine Urobilinogen Normal (Normal)
[2018-09-23 13:04] LABS: Mucous, Urine 2+ /hpf (<or=2+); Squamous Epithelial Cells - UA 0-5 SEEN /hpf (5-10)
[2018-09-23 13:05] LABS: Hyaline Cast 0-5 SEEN /lpf (0-5)
[2018-09-23 13:47] VITALS: BP 105/76; PULSE 106; RESP 18; O2SAT 98
== END 2018-09-23 13:48 | disposition home or self-care (01) ==
PROVIDERS: Emergency Provider Emergency Medicine; Family Provider Family Medicine; PCP Family Medicine
DX: E86.0 Dehydration (principal); E88.89 Other specified metabolic disorders; R05 Cough; R00.0 Tachycardia, unspecified; Z90.49 Acquired absence of other specified parts of digestive tract; Z86.718 Personal history of other venous thrombosis and embolism; Z79.01 Long term (current) use of anticoagulants; Z85.038 Personal history of other malignant neoplasm of large intestine
CPT/HCPCS: 36591; 80053; 81001; 85025; 93005; 96361; 96374; 99285; J7030; J2405

== ENCOUNTER → 2018-09-27 15:17 | Outpatient (CLI) | payer MEDICARE, MEDICAID, SELFPAY ==
[2018-09-23 09:49] VITALS: BMI 29.2
[2018-09-27 15:42] LABS: ALB/GLOB Ratio 0.6 RATIO (0.9-2.4); AST(SGOT) 9 U/L (15-37); Alanine Aminotransfer ALT/SGPT 11 U/L (13-56); Albumin, Serum 2.6 g/dL (3.2-5.0); Alkaline Phosphatase 121 U/L (45-117); Anion Gap 5 (5-15); BUN 8 mg/dL (7-18); BUN/Creat Ratio 14.3 RATIO (10-20); Calcium,Total 8.9 mg/dL (8.5-10.1); Chloride 107 mmol/L (98-107); Creatinine, Serum 0.56 mg/dL (0.55-1.02); EST Glomerular Filtration Rate 120 mL/min (>60); Est Glom Filt Rate - Afr Amer 145 mL/min (>60); Globulin 4.2 g/dL (2.2-4.2); Glucose 82 mg/dL (74-106); Potassium 3.9 mmol/L (3.5-5.1); Protein, Total 6.8 g/dL (6.4-8.2); Sodium Level 139 mmol/L (136-145)
== END ==
PROVIDERS: Family Provider Family Medicine; PCP Family Medicine; Referring Provider Internal Medicine Hematology & Oncology; Visit Provider Internal Medicine Hematology & Oncology
DX: C78.01 Secondary malignant neoplasm of right lung (principal)
CPT/HCPCS: 80053

== ENCOUNTER 2018-10-15 12:34 | Emergency (ER) | payer MEDICARE, MEDICAID, SELFPAY ==
[2018-10-15 12:35] VITALS: BP 109/77; PULSE 121; RESP 20; TEMP 36.8; O2SAT 96; BMI 28.6
--- NOTE | 2018-10-15 12:51 | EKG12_ITS ---
Test Reason : DYSRHYTHMIA Blood Pressure : / mmHG Vent. Rate : 114 BPM Atrial Rate : 114 BPM P-R Int : 124 ms QRS Dur : 074 ms QT Int : 338 ms P-R-T Axes : 051 008 034 degrees QTc Int : 465 ms Sinus tachycardia Otherwise normal ECG Confirmed by BRITTANEY MONDRAGON ([id number]), editorial project manager LOLA IBARRA ([id number]) on 10/24/2018 2:51:43 PM Referred By: KEY Confirmed By:BRITTANEY MONDRAGON
--- NOTE | 2018-10-15 12:52 | CT_ITS ---
STUDY: CTA CHEST REASON FOR EXAM: Female, 53 years old. Cough. Pneumonia. History of colon cancer. RADIATION DOSAGE (If Supplied By Facility): CTDIvol = ( 5.3 ) mGy, DLP = ( 223.72 ) mGycm TECHNIQUE: The examination was performed with the intravenous administration of 100 IV Isovue 370. Post-processing of the angiographic images was performed, with multiplanar reformation and 3D reconstruction. Individualized dose optimization techniques were used for this CT. COMPARISON: None. FINDINGS: There is no evidence of pulmonary embolus. There is no evidence of thoracic aortic aneurysm or dissection. The heart and pericardium are within normal limits. There is a 5.5 x 5.1 cm right infrahilar mass in the superior segment of the right lower lobe which extends to the right hilum. The mass encases and narrows the right middle and lower lobe airways and vessels. This is consistent with neoplasm. There is dense airspace opacity noted in the right middle and lower lobes and patchy groundglass opacity noted throughout the right lung. This may be due to infection or postobstructive pneumonitis. There are small scattered foci of peripheral opacity posteriorly in the left lower lobe which may be due to infection. However, underlying masses cannot be excluded. There are no pleural effusions. There is no pneumothorax. Images through the upper abdomen demonstrate a hepatic cyst. There are no destructive osseous lesions. CT/CTA Chest W/WO Contrast IMPRESSION: No evidence of pulmonary embolus. No evidence of thoracic aortic aneurysm or dissection. 5.5 x 5.1 cm right infrahilar mass in the superior segment of the right lower lobe which extends to the right hilum. The mass encases and narrows the right middle and lower lobe airways and vessels. This is consistent with neoplasm. Dense airspace opacity noted in the right middle and lower lobes and patchy groundglass opacity noted throughout the right lung. This may be due to infection or postobstructive pneumonitis. Small foci of peripheral opacity posteriorly in the left lower lobe which may be due to infection. However, underlying masses cannot be excluded. Electronically Signed: Ramon Perkins, at 15:24 EDT Tel , Service support ,
--- NOTE | 2018-10-15 12:53 | ED.VIS.GEN ---
History of Present Illness Chief Complaint: Shortness of Breath Informant: Patient Onset: Weeks Current Severity: Mild Narrative: Patient is complaining of cough for weeks, recently started Levaquin x1 week with no improvement. She has a history of colon cancer with metastasis x6 years she is been under various chemotherapeutic regimens, a few months ago she started on Keytruda which helped reduce swelling in the area of the neck and the lesion that developed her left back area, she despite taking the Levaquin she persistent having coughing, and occasional vomiting, she is followed by Dr. Coleman who managing all of the above, while at work today she seemed more short of breath and she came in for evaluation Past Medical History - Allergies and Home Meds Allergies/Adverse Reactions: Allergies famotidine [From Pepcid] Allergy (Verified 10/15/18 12:35) Shortness of breath latex Allergy (Verified 10/15/18 12:35) Rash Primary Care Physician: Mani Manzano MD [Primary Care Provider] - Past Medical History: - Surgical History: cholecystectomy Smoking Status: Never smoker - Family History Maternal Family History: Reports: No pertinent history Paternal Family History: Reports: No pertinent history Review of Systems ROS: - As above General: Denies: Chills, Fever, Sweats Eyes: Denies: Visual changes - bilaterally, Diplopia ENT: Denies: Rhinorrhea, Sore throat Cardiovascular: Denies: Chest pain, Palpitations Respiratory: Reports: Cough. Denies: Dyspnea, Dyspnea on exertion Gastrointestinal: Reports: Vomiting. Denies: Abdominal pain, Nausea, Diarrhea, Melena, Hematochezia Genitourinary: Denies: Dysuria, Hematuria, Frequency Musculoskeletal: Denies: Back pain, Extremity Pain Skin: Denies: Rash, Wounds Neurological: Denies: Headache, Weakness, Numbness Physical Exam Vital Signs/Narrative: Vital Signs Temp Pulse Resp BP Pulse Ox 10/15/18 12:35 98.2 F 121 H 20 H 109/77 96 General: Well nourished, Well developed, No Acute Distress Head: Normocephalic, Atraumatic Eyes: Perrl, EOMI ENT: Moist mucous membranes, No rhinorrhea Neck: Supple, Nontender Cardiovascular: Regular rate, Regular rhythm, No murmurs Respiratory: No distress, CTA bilaterally, Chest nontender, Rhonchi, Wheezing Abdomen: Soft, Nontender, Nondistended, Normal bowel sounds Back: Nontender, Normal Inspection Extremities: Nontender, No edema Skin: Normal color, No rash Neurological: Alert, Oriented x3, Cranial nerves II-XII grossly intact, Normal Strength, Normal Sensation Psychological: Normal affect, Normal Mood Diagnostic/Tx/Re-eval - Medical Decision Making Clinically she looks well her vital signs are within normal range, she does have scattered wheezing at this time given all the above screening labs IV fluids CT of the chest aerosols EKG showed a sinus rhythm rate of about 110 intervals unremarkable no acute injury pattern, both screening labs are generally unremarkable see those reports, the chest x-ray shows no acute gross abnormalities see that report, CTA of the chest shows no PE but appeared to be tumor in the right and left lower lobe with possible postobstructive pneumonia type findings on CT Reevaluation she is resting company the bed vitals are unchanged, discussed the findings differential with her, she does not wish to be admitted to the hospital wants to go home prefers outpatient management I spoke with Dr. bruce on-call for her oncologist discussed the case in full detail he did not wish to begin new antibiotic therapy agreed the patient could follow-up with Dr. García in the office so she will be provided with an inhaler to use and she will return for change in symptoms I did discuss the CT findings with her and explained the potential for persistent metastatic disease Home stable Impression final Metastatic colon cancer with mets to lung, dyspnea ED Disposition - Plan for ED Patient: Diagnosis: Colon cancer metastasized to intrathoracic lymph node Instructions: BRONCHITIS, No Antibiotic (Adult), PNEUMONIA (Adult) Prescriptions: Albuterol Inhaler [Ventolin Hfa] 1 - 2 puff INHALATION Q4H PRN PRN #1 inhaler PRN Reason: Wheezing Prescription Printed Referrals: Mani Manzano MD [Primary Care Provider] -
[2018-10-15 13:05] VITALS: PULSE 118; RESP 22
[2018-10-15] MEDS: Ipratropium/Albuterol Sulfate 3 ML AMPUL.NEB INHALATION (13:05)
[2018-10-15] MEDS: Ondansetron 4 MG/2 ML Vial IV (13:48)
[2018-10-15 13:57] LABS: Absolute Lymphocyte Count 0.92 X10^3/uL (0.83-4.51); Absolute Neutrophil Count 5.7 X10^3/uL (2.0-7.7); Basophil# 0.01 X10^3/uL; Basophil% 0.1 % (0-1); Eosinophil# 0.27 X10^3/uL; Eosinophils% 3.6 % (0-5); Hematocrit 34.9 % (37-47); Hemoglobin 11.1 g/dL (12.0-15.0); Lymphocyte # 0.92 X10^3/ul (4.0); Lymphocyte % 12.1 % (19-41); Mean Corp Hgb Conc 31.8 g/dL (32-36); Mean Corpuscular Hgb 25.5 pg (27.0-32.0); Mean Platelet Vol. 8.3 fl (6.2-12.0); Monocyte# 0.72 X10^3/uL; Monocyte% 9.5 % (0-10); NRBC Flagged by Analyzer 0 % (0-5); Neutrophil # 5.65 X10^3/uL (2.7-7.7); Neutrophil % 74.3 % (47-70); Platelet Count 336 K/mm3 (150-450); RBC Distribution Width CV 13.4 % (11.6-14.6); Red Blood Count 4.36 M/mm3 (4.2-5.4); White Blood Count 7.6 K/mm3 (4.4-11.0)
[2018-10-15 14:13] LABS: Anion Gap 7 (5-15); BUN 7 mg/dL (7-18); BUN/Creat Ratio 11.3 RATIO (10-20); Calcium,Total 8.5 mg/dL (8.5-10.1); Chloride 106 mmol/L (98-107); Creatinine, Serum 0.62 mg/dL (0.55-1.02); EST Glomerular Filtration Rate 107 mL/min (>60); Est Glom Filt Rate - Afr Amer 129 mL/min (>60); Estimated Creatinine Clearance 90.62 ml/min; Glucose 106 mg/dL (74-106); Potassium 3.5 mmol/L (3.5-5.1); Sodium Level 137 mmol/L (136-145)
[2018-10-15 14:23] LABS: BNP,B-Type NATRIURETIC PEPTIDE 13.9 pg/mL (0-100)
--- NOTE | 2018-10-15 14:50 | RAD_ITS ---
STUDY: X-RAY CHEST REASON FOR EXAM: Female, 53 years old. Colon cancer with thoracic lymph node metastasis TECHNIQUE: Frontal and lateral views of the chest COMPARISON: 06/05/2018 FINDINGS: Again noted is a right-sided port with its tip in the superior vena cava. When compared with the prior exam, there is increased prominence of the right hilar/perihilar region which is suspicious for worsening metastatic disease. There is new airspace opacity in the right mid to lower lung field which may represent postobstructive pneumonitis. The left lung is clear. The heart is normal in size. The visualized osseous structures are within normal limits. RAD/Chest PA and Lateral IMPRESSION: When compared with the prior exam, there is increased prominence of the right hilar/perihilar region which is suspicious for worsening metastatic disease. New airspace opacity in the right mid to lower lung field which may represent postobstructive pneumonitis. Further evaluation with CT is recommended. Electronically Signed: Ramon Perkins, at 15:10 EDT Tel , Service support ,
[2018-10-15 15:00] VITALS: PULSE 115; RESP 14; O2SAT 99
--- NOTE | 2018-10-15 15:37 | ED.RN ---
DR HECTOR WALSH FOR DR PARSONS
[2018-10-15 16:27] VITALS: PULSE 104; RESP 18; TEMP 36.9; O2SAT 99
== END 2018-10-15 17:15 | disposition home or self-care (01) ==
PROVIDERS: Emergency Provider Emergency Medicine; Family Provider Family Medicine; PCP Family Medicine
DX: C18.9 Malignant neoplasm of colon, unspecified (principal); C77.1 Secondary and unspecified malignant neoplasm of intrathoracic lymph nodes; J18.9 Pneumonia, unspecified organism; Z85.038 Personal history of other malignant neoplasm of large intestine; Z90.49 Acquired absence of other specified parts of digestive tract; Z91.040 Latex allergy status
CPT/HCPCS: 36591; 71046; 71275; 80048; 83880; 84484; 85025; 93005; 94640; 96361; 96374; 99285; J7040; Q9967; A4216; J2405

== ENCOUNTER 2019-01-16 14:49 | Emergency (ER) | payer MEDICARE, MEDICAID, SELFPAY ==
[2019-01-16 14:51] VITALS: BP 114/84; PULSE 102; RESP 16; TEMP 36.7; O2SAT 95; BMI 29.9
--- NOTE | 2019-01-16 15:17 | EKG12_ITS ---
Test Reason : SOB Blood Pressure : / mmHG Vent. Rate : 099 BPM Atrial Rate : 099 BPM P-R Int : 122 ms QRS Dur : 078 ms QT Int : 346 ms P-R-T Axes : 063 014 046 degrees QTc Int : 444 ms Normal sinus rhythm Normal ECG Confirmed by LAN PATEL, ESTEE ([id number]), magazine editor LOLA IBARRA ([id number]) on 01/18/2019 11:43:28 AM Referred By: GERMAIN Confirmed By:ESTEE MONTENEGRO MD
--- NOTE | 2019-01-16 15:26 | CT_ITS ---
STUDY: CTA CHEST REASON FOR EXAM: Female, 53 years old. Shortness of breath. Tumor in the right lung. RADIATION DOSAGE (If Supplied By Facility): CTDIvol = ( 8.23 ) mGy, DLP = ( 363.72 ) mGycm TECHNIQUE: The examination was performed with the intravenous administration of 100ML ISOVUE 370. Post-processing of the angiographic images was performed, with multiplanar reformation and 3D reconstruction. Individualized dose optimization techniques were used for this CT. COMPARISON: 10/15/2018 FINDINGS: No evidence of pulmonary embolism. No evidence of thoracic aortic dissection. There is significant narrowing of the first order branch vessel from the distal right main pulmonary artery which is increased as compared to the most recent prior exam. Again noted is a lobular and ill-defined and heterogeneously enhancing pulmonary mass in the right suprahilar region measuring 8 cm AP by 5.9 cm wide. Previously measuring 6.3 cm AP by 5 cm wide. There is no demonstrated aortic dissection. Normal heart and pericardium. Normal visualized trachea and bronchi. The lungs are hyper expanded, with flattening of the hemidiaphragms. Development of groundglass airspace opacity is present throughout the lungs; left greater than right. Previously, more prominent on the right than the left. Right chest wall Mediport is noted. Small nodule in the right middle lobe measuring 1.3 cm. No evidence of consolidation or effusions. Normal chest wall structures. There are degenerative changes of thoracic spine. Normal visualized upper abdomen. CT/CTA Chest W/WO Contrast IMPRESSION: Negative for pulmonary embolism or thoracic aortic dissection. Increase in size of right suprahilar mass as compared with the prior exam. Increased narrowing of the branch vessels from the distal right main pulmonary artery. More prominent groundglass airspace opacities in the left lung than the right lung on today''s exam. No focal consolidation or effusions. Electronically Signed: Monster Buck DO at 17:34 EST Tel , Service support ,
--- NOTE | 2019-01-16 15:28 | ED.VISSUMM ---
- ER Visit Summary Date of Service: 01/16/19 Chief Complaint: Shortness of breath History of Present Illness: The patient is a [address] Nicholas. She has a history of colon cancer with mets to the lung. She reports she has shortness of breath that began December 29. States that severe when she exerts herself. It is mild at rest after albuterol. She has had a cough for the past 3 weeks that is productive of clear sputum with streaks of blood. She denies fever. However, she has had chills and cold sweats. She reports that she has a continuous pressure on the right side of her chest that began at the same time. It is 2 out of 10 currently and 7 out of 10 at worst. Is increased with laying on her right side. There is no change with exertion or deep breaths. Patient had a chest x-ray and was placed on Levaquin January 11 which she is still taking. She is also had her prednisone increased from 40 to 60 mg a day. She has been using her nebulizer every 4 hours. She had minimal relief with this. She does have a history of PE in the past. She stopped her Xarelto months ago following a nosebleed. Patient is on Keytruda. Her last treatment was a month ago. She was supposed to have a treatment last week, but this was skipped because she was ill. Physical Examination: Vitals: Stable. Afebrile. General: Well-nourished and well-developed. Head: Normocephalic atraumatic. Neck: Supple, no lymphadenopathy. No JVD. Nontender. Cardiovascular: Regular rate and rhythm. No murmurs. Respiratory: No respiratory distress. Mild wheezing bilaterally with good air movement. Abdominal: Soft, nontender, nondistended, normal bowel sounds. No guarding, rebound, or peritoneal signs. Back: Nontender. Extremities: Nontender, no edema. Skin: Normal color, no rash. Neurologic: Alert and oriented ?3. Cranial nerves II through XII are intact. Normal strength and sensation. Psych: Normal affect. Test Results: EKG is sinus at [address] changes. Troponin is negative. Lactic acid is 2.0. Chem-7 shows a glucose 149. CBC shows a white count 11.6 with 97 neutrophils and 5 lymphocytes. Clinical Impression(s) from Imaging Studies Chest CTA 01/16/19 15:26 IMPRESSION: Negative for pulmonary embolism or thoracic aortic dissection. Increase in size of right suprahilar mass as compared with the prior exam. Increased narrowing of the branch vessels from the distal right main pulmonary artery. More prominent groundglass airspace opacities in the left lung than the right lung on today''s exam. No focal consolidation or effusions. Electronically Signed: Monster Buck DO at 17:34 EST Tel , Service support , Emergency Department Course and Treatment: Patient had an IV placed. Given liter normal saline. She was given albuterol and Atrovent aerosols. She is resting comfortably. Treatment Plan: The patient was discussed with Dr. Nicholas and Dr. Bledsoe. She feels well and would like to go home. She is instructed to follow-up Dr. Nicholas this week for further evaluation and treatment. Return to the emergency department for any worsening symptoms. Disposition: To home in improved and stable condition. Impression: 1. Colon cancer with metastases to lung. This note was generated with Dr [employer] dictation software. It may contain incorrect words, spelling, and punctuation that were not noted in review of the chart prior to signing ED Disposition - Plan for ED Patient: Disposition: Home or Assisted Living Instructions: BRONCHITIS, Antiobiotic Treatment (Adult) Referrals: Christopher Nicholas DO [STAFF PHYSICIAN] - 3-5 Days
[2019-01-16] MEDS: Ipratropium/Albuterol Sulfate 3 ML AMPUL.NEB INHALATION (15:54)
[2019-01-16 15:56] VITALS: PULSE 97; RESP 18; O2SAT 95
[2019-01-16 15:56] LABS: Absolute Lymphocyte Count 0.55 X10^3/uL (0.83-4.51); Absolute Neutrophil Count 10.7 X10^3/uL (2.0-7.7); Basophil# 0.01 X10^3/uL; Basophil% 0.1 % (0-1); Eosinophil# 0.01 X10^3/uL; Eosinophils% 0.1 % (0-5); Hematocrit 40.2 % (37-47); Hemoglobin 12.8 g/dL (12.0-15.0); Lymphocyte # 0.55 X10^3/ul (4.0); Lymphocyte % 4.8 % (19-41); Mean Corp Hgb Conc 31.8 g/dL (32-36); Mean Corpuscular Hgb 25.5 pg (27.0-32.0); Mean Corpuscular Volume 80.2 fL (81-99); Mean Platelet Vol. 8.2 fl (6.2-12.0); Monocyte# 0.17 X10^3/uL; Monocyte% 1.5 % (0-10); NRBC Flagged by Analyzer 0 % (0-5); Neutrophil # 10.72 X10^3/uL (2.7-7.7); Neutrophil % 92.5 % (47-70); POSITIVE DIFFERENTIAL YES; Platelet Count 294 K/mm3 (150-450); RBC Distribution Width CV 16.5 % (11.6-14.6); RBC Distribution Width SD 47.8 fl (35.1-43.9); Red Blood Count 5.01 M/mm3 (4.2-5.4); White Blood Count 11.6 K/mm3 (4.4-11.0)
[2019-01-16 16:02] VITALS: BP 97/77; PULSE 109; RESP 18; O2SAT 96
[2019-01-16 16:05] LABS: Differential Indicated SCAN CRITERIA MET
[2019-01-16] MEDS: 0.9% Normal Saline 1,000 ML 999 ML IV (16:11)
[2019-01-16 16:19] LABS: Anion Gap 5 (5-15); BUN 17 mg/dL (7-18); Calcium,Total 9.1 mg/dL (8.5-10.1); Chloride 106 mmol/L (98-107); Creatinine, Serum 0.81 mg/dL (0.55-1.02); EST Glomerular Filtration Rate 79 mL/min (>60); Est Glom Filt Rate - Afr Amer 95 mL/min (>60); Estimated Creatinine Clearance 69.36 ml/min; Glucose 149 mg/dL (74-106); Sodium Level 139 mmol/L (136-145)
[2019-01-16 16:26] LABS: Platelet Estimate ADEQUATE (ADEQ); Red Cell Morphology NORM C+C NORMAL (NORM C&C)
[2019-01-16 18:28] VITALS: BP 110/72; PULSE 88; RESP 16; O2SAT 97
[2019-01-16] MEDS: Naproxen 500 MG Tablet PO (18:36)
[2019-01-16 18:55] VITALS: BP 107/83; PULSE 88; RESP 16
--- NOTE | 2019-01-16 18:56 | ED.RN ---
PORT ACCESSED PER PROTOCOL. DISCHARGE INSTRUCTIONS GIVEN TO AND REVIEWED WITH PATIENT, PATIENT DENIES QUESTIONS OR CONCERNS AND VOICES UNDERSTANDING OF DISCHARGE INSTRUCTIONS. PT AMBULATES OUT OF ROOM WITHOUT DIFFICULTY.
[2019-01-16 19:51] LABS: Reflex Lactate? Y
== END 2019-01-16 18:56 | disposition home or self-care (01) ==
LOC: ED 15:26
PROVIDERS: Emergency Provider Emergency Medicine; Family Provider Family Medicine; PCP Family Medicine
DX: C18.9 Malignant neoplasm of colon, unspecified (principal); C78.00 Secondary malignant neoplasm of unspecified lung; Z86.711 Personal history of pulmonary embolism; Z85.038 Personal history of other malignant neoplasm of large intestine
CPT/HCPCS: 36591; 71275; 80048; 83605; 84484; 85025; 87040; 93005; 94640; 96360; 99285; J7030; Q9967; A4216

== ENCOUNTER 2019-04-04 20:17 | Observation (INO) | payer MEDICARE, SELFPAY ==
[2019-04-04] VITALS (7 sets, daily range): BP systolic 103–124; BP diastolic 67–89; PULSE 84–100; RESP 16–24; TEMP 36.8; O2SAT 25–96; BMI 31.8
--- NOTE | 2019-04-04 20:33 | EKG12_ITS ---
Test Reason : CP Blood Pressure : / mmHG Vent. Rate : 093 BPM Atrial Rate : 093 BPM P-R Int : 124 ms QRS Dur : 076 ms QT Int : 362 ms P-R-T Axes : 072 -02 049 degrees QTc Int : 450 ms Normal sinus rhythm Normal ECG Confirmed by BRITTANEY MONDRAGON ([id number]), editorial director MITCH RENO ([id number]) on 04/05/2019 2:57:26 PM Referred By: NELY Confirmed By:BRITTANEY MONDRAGON
--- NOTE | 2019-04-04 20:33 | ED.RN ---
CALLED FOR EKG PER RN REQUEST, PULLED OLD EKGS FOR
[2019-04-04] MEDS: 0.9% Normal Saline 1,000 ML 999 ML IV (20:39)
[2019-04-04] MEDS: fentaNYL 100 MCG/2 ML Ampul 50 MCG IV (20:40)
--- NOTE | 2019-04-04 20:55 | RAD_ITS ---
STUDY: X-RAY - ACUTE ABDOMINAL SERIES REASON FOR EXAM: Female, 53 years old. PT C/O CP AND SOB STARTING AT 1500 WHILE AT REST. HX OF COLON CA WITH METS TO RT LUNG. TECHNIQUE: Single view of the chest. Supine, 3 view(s) of the abdomen were obtained. COMPARISON: None. FINDINGS: Stable right venous port. The lungs are expanded. There is a 1 cm left midlung nodular opacity. Normal size heart. Normal mediastinum. Right suprahilar spiculated masslike opacity. Normal visualized pulmonary arteries. Normal visualized aortic arch and descending thoracic aorta. There is a non-specific bowel gas pattern. Mild colonic fecal retention diffusely. The soft tissue structures of the abdomen and pelvis are unremarkable. Degenerative vertebral changes. RAD/Acute Abdomen Inc Chest IMPRESSION: Diffuse mild colonic fecal retention. Right suprahilar masslike opacity. Left midlung nodular opacity. Electronically Signed: Hakan Hauser DO at 21:26 EST Tel [phone], Service support ,
[2019-04-04 21:10] LABS: Absolute Lymphocyte Count 0.74 X10^3/uL (0.83-4.51); Absolute Neutrophil Count 10.4 X10^3/uL (2.0-7.7); Basophil# 0.04 X10^3/uL; Basophil% 0.3 % (0-1); Eosinophil# 0.05 X10^3/uL; Eosinophils% 0.4 % (0-5); Hematocrit 36.7 % (37-47); Hemoglobin 11.5 g/dL (12.0-15.0); Lymphocyte # 0.74 X10^3/ul (4.0); Lymphocyte % 5.7 % (19-41); Mean Corp Hgb Conc 31.3 g/dL (32-36); Mean Corpuscular Hgb 27.3 pg (27.0-32.0); Mean Corpuscular Volume 87.2 fL (81-99); Mean Platelet Vol. 8.6 fl (6.2-12.0); NRBC Flagged by Analyzer 0 % (0-5); Neutrophil # 10.35 X10^3/uL (2.7-7.7); Neutrophil % 79.8 % (47-70); POSITIVE MORPHOLOGY YES; Platelet Count 285 K/mm3 (150-450); RBC Distribution Width CV 20.1 % (11.6-14.6); RBC Distribution Width SD 61.2 fl (35.1-43.9); Red Blood Count 4.21 M/mm3 (4.2-5.4)
[2019-04-04 21:22] LABS: Anion Gap 6 (5-15); BUN 15 mg/dL (7-18); BUN/Creat Ratio 20.8 RATIO (10-20); Calcium,Total 8.4 mg/dL (8.5-10.1); Chloride 109 mmol/L (98-107); Creatinine, Serum 0.72 mg/dL (0.55-1.02); EST Glomerular Filtration Rate 90 mL/min (>60); Est Glom Filt Rate - Afr Amer 109 mL/min (>60); Estimated Creatinine Clearance 78.03 ml/min; Glucose 108 mg/dL (74-106); Potassium 3.9 mmol/L (3.5-5.1); Sodium Level 141 mmol/L (136-145)
[2019-04-04 21:36] LABS: Differential Indicated SCAN CRITERIA MET
[2019-04-04 21:38] LABS: D-Dimer Quantitative (DVT/PE) 1.15 FEU/ug/m (0.27-0.49)
--- NOTE | 2019-04-04 21:44 | CT_ITS ---
We are attempting to reach an attending provider to discuss findings. An addendum with communication details will be sent when the communication is complete. STUDY: CTA CHEST REASON FOR EXAM: Female, 53 years old. CP, SOB, CURRENT COLON CA WITH LUNG METS, POWER PORT RADIATION DOSAGE (If Supplied By Facility): CTDIvol = ( 12.16 ) mGy, DLP = ( 495.51 ) mGycm TECHNIQUE: The examination was performed with the intravenous administration of IV 100mL Isovue-370. Post-processing of the angiographic images was performed, with multiplanar reformation and 3D reconstruction. Individualized dose optimization techniques were used for this CT. COMPARISON: January 16, 2019. FINDINGS: Normal enhancement of the main pulmonary artery and right and left pulmonary arteries. There are small filling defects noted of left upper and lower lobe peripheral pulmonary arteries. Small left pulmonary embolism is suspected. Normal thoracic aorta and visualized great vessels. There is no demonstrated aortic dissection. Normal heart and pericardium. Normal mediastinum. Normal hilar regions. Normal visualized trachea and bronchi. The lungs are well expanded. Pleural-based enlarging spiculated right upper and lower lobe mass is noted medially with consolidation. New pulmonary nodules are noted bilaterally since the previous study with the largest in the left lower lobe posteriorly measuring 2.3 x 1.3 cm. Mild right pleural effusion. Trace left pleural effusion with basilar atelectasis. Normal chest wall structures. Mild degenerative vertebral changes. Stable mild compression of T6. Cystic lesion of the caudate lobe in the liver measuring 4.2 x [address]/CTA Chest W/WO Contrast IMPRESSION: Left pulmonary embolism in the upper and lower lobes. Right pleural based spiculated mass with consolidation. New pulmonary nodules bilaterally. Mild effusions bilaterally. Cystic lesion at the caudate lobe of the liver. Electronically Signed: Hakan Hauser DO at 23:03 EST Tel [phone], Service support ,
[2019-04-04 21:56] LABS: Anisocytosis 1+; Macrocytosis RARE; Platelet Estimate ADEQUATE (ADEQ); Red Cell Morphology N CHROM NORMAL (NORM C&C)
--- NOTE | 2019-04-04 22:37 | ED.RN ---
NOTIFIED OF 2 SIRS MET. AFTER DISCUSSION WITH MD THERE IS NO AREA OF SUSPECTED INFECTION SO NO SEPSIS CRITERIA
--- NOTE | 2019-04-04 23:35 | ED.VISSUMM ---
- ER Visit Summary Date of Service: 04/04/19 Chief Complaint: Left shoulder and left-sided neck pain History of Present Illness: The patient is a [address] Nicholas and Dr. Michele Milner III. She reports that at 3:00 this afternoon while at rest she had the abrupt onset of the above complaints. She states the pain is sharp. Is 10 on 10 in severity. It is worsened by nothing including exertion or movement of her arm. She states that it is relieved by lifting her left arm. She denies any associated nausea, vomiting, or diaphoresis. She does report that she feels mildly short of breath. She denies any fever, chills, cough, chest pain, or other complaints. Physical Examination: Vitals: Stable. Afebrile. General: Well-nourished and well-developed. Head: Normocephalic atraumatic. Neck: Supple, no lymphadenopathy. No JVD. Nontender. Cardiovascular: Regular rate and rhythm. No murmurs. Respiratory: No respiratory distress. Clear to auscultation bilaterally. Abdominal: Soft, nontender, nondistended, normal bowel sounds. No guarding, rebound, or peritoneal signs. Back: Nontender. Extremities: Nontender, no edema. Skin: Normal color, no rash. Neurologic: Alert and oriented ?3. Cranial nerves II through XII are intact. Normal strength and sensation. Psych: Normal affect. Test Results: EKG is sinus at 93 unchanged from January 2019. Troponin is negative. D-dimer is 1.15. Chem-7 shows a chloride 109, glucose of 108, calcium of 8.4. CBC shows a white count of 13.0 with 80 segmented neutrophils and 6 lymphocytes. H&H is 11.5 and 36.7. Clinical Impression(s) from Imaging Studies Acute Abdomen Series 04/04/19 20:55 IMPRESSION: Diffuse mild colonic fecal retention. Right suprahilar masslike opacity. Left midlung nodular opacity. Electronically Signed: Hakan Hauser DO at 21:26 EST Tel [phone], Service support , Chest CTA 04/04/19 21:44 IMPRESSION: Left pulmonary embolism in the upper and lower lobes. Right pleural based spiculated mass with consolidation. New pulmonary nodules bilaterally. Mild effusions bilaterally. Cystic lesion at the caudate lobe of the liver. Electronically Signed: Hakan Hauser DO at 23:03 EST Tel [phone], Service support , ADDENDUM: 04/04/19 2314 IMPRESSION: Left pulmonary embolism in the upper and lower lobes. Right pleural based spiculated mass with consolidation. New pulmonary nodules bilaterally. Mild effusions bilaterally. Cystic lesion at the caudate lobe of the liver. N.B. : The above information has been verbally conveyed by Hakan Hauser DO to Alon Graham MD, on 04/04/2019 23:06:24 (ET). Electronically Signed: Hakan Hauser DO at 23:03 EST Tel [phone], Service support , Emergency Department Course and Treatment: Patient was given a dose of fentanyl IV. She is resting comfortably. She was given Eliquis p.o. Treatment Plan: Patient was discussed with Dr. Rogers. She will be admitted to the hospital for further evaluation and treatment. Disposition: Admitted in stable condition. Impression: 1. Pulmonary embolus. This note was generated with [employer] software. It may contain incorrect words, spelling, and punctuation that were not noted in review of the chart prior to signing ED Disposition - Plan for ED Patient: Referrals: Michele Milner III, MD [Primary Care Provider] -
--- NOTE | 2019-04-04 23:40 | PCM.HP.STD ---
History of Present Illness Date of Admission: 04/04/19 Chief Complaint: shortness of breath, chest pain The patient is a 53 year old F with a PMH as outlined, which includes colon cancer, diagnosed in 2019 who was admitted through the ED with a complaint of shortness of breath and chest pain was started on day of admission. Symptoms started acutely and chest pain radiated to the left side of her neck. She also had shortness of breath was present at rest and not worsened by exertion. Chest pain was worsened by breathing in and out. She is never had such symptoms before. She denied any history of DVT or PE but does see that when her port was put in for her cancer, she did have a blood clot for which she was on anticoagulants. Anticoagulants were stopped just a few months ago. She states she used to be on Keytruda but she had reaction to it and this was stopped. She follows with Dr. Nicholas. On admission in the ED, pulse rate was 88, respiratory was 24 and temperature was 98.3. Blood pressure was 103/67. She was saturating at 95% on 2 L of oxygen. Chemistry essentially unremarkable and troponin was < 0.015 initially. CBC showed WBC of 13 and hemoglobin of 11.5. CTA showed left pulmonary embolism in the upper and lower lobes with right pleural place spiculated mass with consolidation and new pulmonary nodes bilaterally with mild effusions bilaterally and cystic lesion of the caudate lobe of the liver. Acute abdomen series showed diffuse mild colonic fecal retention and right suprahilar masslike opacity with left midlung nodular opacity. She has been admitted to be managed for acute PE and acute hypoxic respiratory insufficiency likely due to acute PE. [] Past Medical History Past Medical History (Chronic Problems): Chronic Problems intermediate current use of anticoagulant (Chronic) History of DVT of the upper extremity Colon cancer metastasized to intrathoracic lymph node (Chronic) Allergies famotidine [From Pepcid] Allergy (Verified 04/04/19 20:26) Shortness of breath latex Allergy (Verified 04/04/19 20:26) Rash Home Medications: Ambulatory Orders Medication Instructions Recorded Lorazepam [Ativan] 0.5 mg PO Q8H PRN 11/13/16 Levothyroxine [Synthroid] 75 mcg PO DAILY 01/16/19 predniSONE tablet 20 tab PO DAILY 01/16/19 Albuterol Aerosols [Ventolin 2.5 mg INHALATION Q4HWA.RT 04/04/19 Aerosols] Albuterol Inhaler [Ventolin Hfa] 1 - 2 puff INHALATION Q6H PRN 04/04/19 Atenolol 50 mg PO BID 04/04/19 Duloxetine HCl 30 mg PO DAILY 04/04/19 Gabapentin [Neurontin] 200 mg PO TID 04/04/19 Guaifenesin [Mucinex] 600 mg PO Q12H PRN PRN 04/04/19 Nystatin 5 ml PO 4X/DAY 04/04/19 Oxycodone Myristate [Xtampza ER] 27 mg PO Q12H 04/04/19 Sennosides/Docusate Sodium 1 tab PO BID 04/04/19 [Senna-S Tablet] Smz/Tmp Ds [Bactrim Ds] 1 tab PO MOWEFR 04/04/19 Surgical History: cholecystectomy Psychiatric History: 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 Denies: Chest Pressure, Chest Tightness, Edema, Heaviness, Light Headedness, Orthopnea, Palpitations, Paroxysmal Noc. Dyspnea, Syncope Respiratory: Reports: Shortness of Breath, Shortness of breath at rest, Shortness of breath upon exertion. Denies: Cough, Sputum production Gastrointestinal: Denies: Abdominal Pain, Nausea, Vomiting Genitourinary: Denies: Dysuria Musculoskeletal: Denies: Joint Pain, Joint Tenderness Skin: Denies: Rash, Wounds Neurological: Denies: Numbness, Tingling, Focal weakness Psychiatric: Denies: Anxiety, Depression, Homicidal Ideations, Suicidal Ideations Hematologic/ Lymphatic: Denies: Easy Bruising, Easy Bleeding VTE Information - Inpt Only VTE Present on Admission: Yes - Physical Exam Vitals/I&O's: Vital Signs Temp Pulse Resp BP Pulse Ox 98.3 F 88 24 H 103/67 95 04/04/19 22:22 04/04/19 22:22 04/04/19 22:22 04/04/19 22:22 04/04/19 22:22 Oxygen Flow Rate (L/min) 2 Oxygen Delivery Method Nasal Cannula Weight: 185 lb 6.54 oz Body Mass Index (BMI) 31.8 Intake and Output for Last 24 Hours 04/02/19 04/03/19 04/04/19 23:59 23:59 23:59 Intake Total 1000 / 1000 Balance 1000 / 1000 General: Alert, Oriented x3, Cooperative, No apparent distress HEENT: Atraumatic, PERRLA, EOMI, Normocephalic Oral: Moist Mucosa Neck: Supple, No JVD, Negative Carotid Bruits Lungs: Clear to auscultation, Normal air movement, No rhonchi, No wheeze, No rales, - - on 2L of oxygen Cardiovascular: Regular rate, Regular Rhythm, Normal S1, Normal S2, No murmurs Abdomen: Bowel Sounds Present, Soft, Non Tender, Non-Distended, No Hepato-splenomegaly Extremities: No clubbing, No cyanosis, No edema, Capillary Refill Less than 3 Seconds Skin: No rashes, No breakdown Musculoskeletal: No Tenderness to Palpation of Joints or Extremities Lymphatic: No Cervical, Supraclavicular, or Inguinal Adenopathy Neurological: Cranial nerves II-XII grossly intact, Neuro grossly intact, Motor Exam 5/5 strength throughout Psych/Mental Status: Normal Affect, Appropriate, Alert and oriented to time, place, person, mood and affect Laboratory Results 04/04/19 20:40: WBC 13.0 H, RBC 4.21, Hgb 11.5 L, Hct 36.7 L, MCV 87.2, MCH 27.3, MCHC 31.3 L, RDW Std Deviation 61.2 H, RDW Coeff of Marixa 20.1 H, Plt Count 285, MPV 8.6, Immature Gran % (Auto) 3.800 H, Neut % (Auto) 79.8 H, Lymph % (Auto) 5.7 L, [place] % (Auto) 10.0, Eos % (Auto) 0.4, Baso % (Auto) 0.3, Absolute Neuts (auto) 10.4 H, Absolute Lymphs (auto) 0.74 L, Nucleated RBC % 0, Platelet Estimate ADEQUATE, RBC Morphology N CHROM, Anisocytosis 1+, Macrocytosis RARE 04/04/19 20:40: D-Dimer Quant (PE/DVT) 1.15 H* 04/04/19 20:40: Sodium 141, Potassium 3.9, Chloride 109 H, Carbon Dioxide 26.0, Anion Gap 6, BUN 15, Creatinine 0.72, Estim Creat Clear Calc 78.03, Est GFR (MDRD) Af Amer 109, Est GFR (MDRD) Non-Af 90, BUN/Creatinine Ratio 20.8 H, Glucose 108 H, Calcium 8.4 L, Troponin I < 0.015 Diagnostic Data Acute Abdomen Series 04/04/19 20:55 IMPRESSION: Diffuse mild colonic fecal retention. Right suprahilar masslike opacity. Left midlung nodular opacity. Electronically Signed: Hakan Hauser DO at 21:26 EST Tel [phone], Service support , Chest CTA 04/04/19 21:44 IMPRESSION: Left pulmonary embolism in the upper and lower lobes. Right pleural based spiculated mass with consolidation. New pulmonary nodules bilaterally. Mild effusions bilaterally. Cystic lesion at the caudate lobe of the liver. Electronically Signed: Hakan Hauser DO at 23:03 EST Tel [phone], Service support , ADDENDUM: 04/04/19 2313 IMPRESSION: Left pulmonary embolism in the upper and lower lobes. Right pleural based spiculated mass with consolidation. New pulmonary nodules bilaterally. Mild effusions bilaterally. Cystic lesion at the caudate lobe of the liver. N.B. : The above information has been verbally conveyed by Hakan Hauser DO to Alon Graham MD, on 04/04/2019 23:06:24 (ET). Electronically Signed: Hakan Hauser DO at 23:03 EST Tel [phone], Service support , Current Medications Apixaban (Eliquis) 5 mg PO BID ULICES Heparin Sodium (Beef Lung) () 50 units IV UD PRN PRN Reason: Port-a-Cath (VAD)Heparin Flush Sodium Chloride () 10 - 40 ml IV UD PRN PRN Reason: Port-a-Cath (VAD) Flush Sodium Chloride (0.9% Nacl (Sterile) Posiflush) 10 - 40 ml IV UD PRN PRN Reason: Port access or dressing change Assessment/Plan All Active Problems Drug rash (Acute) Hemoptysis (Acute) Epistaxis (Acute) Thrombocytopenia (Acute) 53-year-old female admitted with a complaint of shortness of breath and chest pain and found to have PE 1. Acute PE likely provoked, due to colon cancer admit to PCU with telemetry Chest CT showed left pulmonary embolism in the upper and lower lobes with a right-sided pleural-based spiculated mass with consolidation and new pulmonary nodules bilaterally with mild effusions bilaterally and cystic lesion at the caudate lobe of the liver. had a clot at site of Port Start patient on Eliquis. States she was on Xarelto until recently. From review of chart, she was on Xarelto and so she started experiencing epistaxis and had thrombocytopenia. Patient hematology recommendation, Xarelto was held at that time. (06/05/18) her oncologist Dr Nicholas informed verbally- he agrees with anticoagulation, patient to follow with him on outpatient basis after discharge 2. Colon cancer with mets to the lung and lymph nodes States she used to be on Keytruda but this was stopped as she reacted to it. Follows with Dr. Nicholas 3. Hypertension: On atenolol. 4. Hypothyroidism: On Synthroid DVT prophylaxis: Not indicated as patient presented with acute PE. CODE STATUS: Full code Patient counseled extensively about different types of CODE STATUS including full code, DNR CCA and DNR CCA. Patient elects to be full code . Total [id number] time 17 minutes. Code Visit OBSV E&M: 78034 Initial observation care L2 Procedures: 52050 Advncd Care Plan 30 Min
[2019-04-04] MEDS: APIXABAN 5 MG TABLET PO (23:56)
[2019-04-05] VITALS (10 sets, daily range): BP systolic 111–112; BP diastolic 67–71; PULSE 61–87; RESP 14–20; TEMP 36.6–36.8; O2SAT 94–98; BMI 31.8; BMI 31.9
[2019-04-05] MEDS: Albuterol 2.5 MG/3 ML VIAL.NEB. INHALATION ×3 (01:45→11:08)
[2019-04-05] MEDS: APIXABAN 5 MG TABLET PO (01:55)
[2019-04-05] MEDS: Levothyroxine 75 MCG Tablet PO (05:10)
[2019-04-05] MEDS: Gabapentin 100 MG Capsule 200 MG PO (05:10)
[2019-04-05] MEDS: 0.9% Saline Lock 10 ML Syringe IV (07:02)
[2019-04-05 07:15] LABS: Absolute Lymphocyte Count 0.79 X10^3/uL (0.83-4.51); Absolute Neutrophil Count 6.9 X10^3/uL (2.0-7.7); Basophil# 0.02 X10^3/uL; Basophil% 0.2 % (0-1); Eosinophil# 0.01 X10^3/uL; Eosinophils% 0.1 % (0-5); Hematocrit 35.1 % (37-47); Hemoglobin 10.8 g/dL (12.0-15.0); Lymphocyte # 0.79 X10^3/ul (4.0); Lymphocyte % 8.9 % (19-41); Mean Corp Hgb Conc 30.8 g/dL (32-36); Mean Corpuscular Hgb 26.9 pg (27.0-32.0); Mean Corpuscular Volume 87.5 fL (81-99); Mean Platelet Vol. 8.6 fl (6.2-12.0); Monocyte# 0.82 X10^3/uL; Monocyte% 9.3 % (0-10); NRBC Flagged by Analyzer 0 % (0-5); Neutrophil % 77.9 % (47-70); Platelet Count 251 K/mm3 (150-450); RBC Distribution Width CV 19.8 % (11.6-14.6); RBC Distribution Width SD 61.8 fl (35.1-43.9); Red Blood Count 4.01 M/mm3 (4.2-5.4); White Blood Count 8.9 K/mm3 (4.4-11.0)
[2019-04-05 07:36] LABS: Anion Gap 5 (5-15); BUN 10 mg/dL (7-18); BUN/Creat Ratio 21.9 RATIO (10-20); Chloride 109 mmol/L (98-107); Creatinine, Serum 0.46 mg/dL (0.55-1.02); EST Glomerular Filtration Rate 152 mL/min (>60); Est Glom Filt Rate - Afr Amer 184 mL/min (>60); Estimated Creatinine Clearance 122.13 ml/min; Glucose 91 mg/dL (74-106); Potassium 4.2 mmol/L (3.5-5.1); Sodium Level 140 mmol/L (136-145)
[2019-04-05] MEDS: oxyCODONE HCl Cr 10 MG Tablet 30 MG PO (08:01)
[2019-04-05] MEDS: predniSONE 20 MG Tablet PO (08:01)
[2019-04-05] MEDS: Smz/Tmp Ds Tablet 1 TABLET PO (08:01)
[2019-04-05] MEDS: APIXABAN 5 MG TABLET 10 MG PO (09:45)
[2019-04-05] MEDS: DULoxetine Hcl 30 MG Capsule PO (09:45)
[2019-04-05] MEDS: Atenolol 50 MG Tablet PO (09:46)
[2019-04-05] MEDS: NYSTATIN 500,000 UNIT/5 ML UDC 500000 UNIT PO (09:46)
[2019-04-05] MEDS: Senna/Docusate Sodium 1 Tablet PO (09:46)
--- NOTE | 2019-04-05 10:09 | CASEMGMT ---
Addendum entered by Johana Flowers 04/05/19 11:39: Pt is discharged. SW faxed the discharge instructions to [facility], will speak w/Palliative care should they return SW call. TJ Cox Addendum entered by Johana Flowers 04/05/19 10:42: SW called [facility]([phone]), someone from Judson Umana's team is to call this SW back. SW faxed H&P to [phone]. TJ Cox Original Note: Pt is current w/palliative care. SW called [facility], pt is not current w/their program. SW spoke w/pt, she has palliative w/[facility]. SW will call shortly. TJ Cox
--- NOTE | 2019-04-05 11:23 | PCM.DC ---
You will use the following diet at home:: No restrictions Your food should be the consistency of: Regular Your liquids should be the consistency of: Regular/Thin Discharge Activity: Return to Normal Activity Allergies/Adverse Reactions: Allergies famotidine [From Pepcid] Allergy (Verified 04/04/19 20:26) Shortness of breath latex Allergy (Verified 04/04/19 20:26) Rash Medications to take at Discharge Lorazepam [Ativan] 0.5 mg PO Q8H PRN 11/13/16 Levothyroxine [Synthroid] 75 mcg PO DAILY 01/16/19 predniSONE tablet 20 tab PO DAILY 01/16/19 Albuterol Aerosols [Ventolin Aerosols] 2.5 mg INHALATION Q4HWA.RT 04/04/19 Albuterol Inhaler [Ventolin Hfa] 1 - 2 puff INHALATION Q6H PRN 04/04/19 Atenolol 50 mg PO BID 04/04/19 Duloxetine HCl 30 mg PO DAILY 04/04/19 Gabapentin [Neurontin] 200 mg PO TID 04/04/19 Guaifenesin [Mucinex] 600 mg PO Q12H PRN PRN 04/04/19 Nystatin 5 ml PO 4X/DAY 04/04/19 Oxycodone Myristate [Xtampza ER] 27 mg PO Q12H 04/04/19 Sennosides/Docusate Sodium [Senna-S Tablet] 1 tab PO BID 04/04/19 Smz/Tmp Ds [Bactrim Ds] 1 tab PO MOWEFR 04/04/19 Apixaban [Eliquis] 10 mg PO BID #70 tab 04/05/19 The following prescriptions were given: Apixaban [Eliquis] 10 mg PO BID #70 tab Transmission Status: Received by [address] Primary Care Physician: Michele Milner III, MD [Primary Care Provider] - Please follow up with your Primary Care Physician in: 1-2 weeks Test Results: Test results from this visit will be discussed in further detail at your follow-up appointment, if applicable. Please Follow Up With: Christopher Nicholas DO When: 1 week Please Follow Up With: Palliative care When: as needed Proposed Discharge Date: 04/05/19
--- NOTE | 2019-04-05 11:29 | CASEMGMT ---
Pt to be sent home on Eliquis at discharge and [facility]. [facility] and she states that pt's co-pay is $0 at this time. Pt updated at this time, voices understanding and states no further questions/concerns/needs at this time. Favian TARANGO CM
--- NOTE | 2019-04-05 11:58 | PHA.DC.MC ---
Pharmacy Service has performed discharge medication reconciliation and counseling for this patient. 1. APIXABAN 10MG PO BID X 13 DOSES THEN 5MG PO BID The patient's discharge medication list was reviewed for discrepancies and discrepancies were resolved. Home Medications Lorazepam [Ativan] 0.5 mg PO Q8H PRN 11/13/16 Levothyroxine [Synthroid] 75 mcg PO DAILY 01/16/19 predniSONE tablet 20 tab PO DAILY 01/16/19 Albuterol Aerosols [Ventolin Aerosols] 2.5 mg INHALATION Q4HWA.RT 04/04/19 Albuterol Inhaler [Ventolin Hfa] 1 - 2 puff INHALATION Q6H PRN 04/04/19 Atenolol 50 mg PO BID 04/04/19 Duloxetine HCl 30 mg PO DAILY 04/04/19 Gabapentin [Neurontin] 200 mg PO TID 04/04/19 Guaifenesin [Mucinex] 600 mg PO Q12H PRN PRN 04/04/19 Nystatin 5 ml PO 4X/DAY 04/04/19 Oxycodone Myristate [Xtampza ER] 27 mg PO Q12H 04/04/19 Sennosides/Docusate Sodium [Senna-S Tablet] 1 tab PO BID 04/04/19 Smz/Tmp Ds [Bactrim Ds] 1 tab PO MOWEFR 04/04/19 Apixaban [Eliquis] 10 mg PO BID #70 tab 04/05/19 The patient was counseled on the following discharge medications and changes in medications for homegoing were reviewed. The Reason for Use, instructions for use, and potential side effects were reviewed for all new medications. The patient's questions regarding all of their medications were answered. The patient was able to verbally demonstrate an understanding of their discharge medications.
--- NOTE | 2019-04-05 13:54 | DS.PCM_ITS ---
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 Right pleural based spiculated mass with consolidation. New pulmonary nodules bilaterally. Mild effusions bilaterally. Cystic lesion at the caudate lobe of the liver. RAD/Acute Abdomen Inc Chest IMPRESSION: Diffuse mild colonic fecal retention. Right suprahilar masslike opacity. Left midlung nodular opacity. Operations: None Procedures: None Summary of Care Provided: Hospital Course: The patient is a 53 year old F with pmhx of St IV colon cancer mets to the spine, nodes, lung pt of Dr. Nicholas on po chemo, who presented to the ER with c/o chest pain and SOB. D dimer was elevated, troponin was negative, EKG was negative, and she was mildly hypoxic on room air. CTA was obtained and showed PEs. She was admitted to the PCU on tele overnight and started on eliquis. By the following morning she had improvement in her pain and did not require O2. She was placed on eliquis and advised to follow up with her oncologist in 1 week, [facility] palliative as needed, and with her PCP in 1-2 weeks. This patient was seen by Jason Rizo PA-C under the supervision of Dr. Soares. [] - Physical Exam Vitals/I&O's: Vital Signs Temp Pulse Resp BP Pulse Ox 97.9 F 78 16 112/71 94 04/05/19 10:00 04/05/19 11:08 04/05/19 11:08 04/05/19 10:00 04/05/19 10:00 Oxygen Flow Rate (L/min) 2 Oxygen Delivery Method Room Air Weight: 185 lb 13.595 oz Body Mass Index (BMI) 31.8 Intake and Output for Last 24 Hours 04/03/19 04/04/19 04/05/19 23:59 23:59 23:59 Intake Total 1000 / 1000 Balance 1000 / 1000 General: Alert, Oriented x3, Cooperative HEENT: Atraumatic, PERRLA, EOMI, Normocephalic Neck: Supple, No JVD, Negative Carotid Bruits Lungs: Clear to auscultation, Normal air movement Cardiovascular: Regular rate, No murmurs Abdomen: Bowel Sounds Present, Soft, Non Tender Extremities: No edema, Capillary Refill Less than 3 Seconds Skin: No rashes, No breakdown Musculoskeletal: No Tenderness to Palpation of Joints or Extremities Neurological: Cranial nerves II-XII grossly intact Psych/Mental Status: Normal Affect, Appropriate, Alert and oriented to time, place, person, mood and affect Laboratory Results 04/04/19 20:40: WBC 13.0 H, RBC 4.21, Hgb 11.5 L, Hct 36.7 L, MCV 87.2, MCH 27.3, MCHC 31.3 L, RDW Std Deviation 61.2 H, RDW Coeff of Marixa 20.1 H, Plt Count 285, MPV 8.6, Immature Gran % (Auto) 3.800 H, Neut % (Auto) 79.8 H, Lymph % (Auto) 5.7 L, [place] % (Auto) 10.0, Eos % (Auto) 0.4, Baso % (Auto) 0.3, Absolute Neuts (auto) 10.4 H, Absolute Lymphs (auto) 0.74 L, Nucleated RBC % 0, Platelet Estimate ADEQUATE, RBC Morphology N CHROM, Anisocytosis 1+, Macrocytosis RARE 04/04/19 20:40: D-Dimer Quant (PE/DVT) 1.15 H* 04/04/19 20:40: Sodium 141, Potassium 3.9, Chloride 109 H, Carbon Dioxide 26.0, Anion Gap 6, BUN 15, Creatinine 0.72, Estim Creat Clear Calc 78.03, Est GFR (MDRD) Af Amer 109, Est GFR (MDRD) Non-Af 90, BUN/Creatinine Ratio 20.8 H, Glucose 108 H, Calcium 8.4 L, Troponin I < 0.015 04/05/19 01:32: Troponin I < 0.015 04/05/19 03:58: Troponin I < 0.015 04/05/19 06:58: WBC 8.9, RBC 4.01 L, Hgb 10.8 L, Hct 35.1 L, MCV 87.5, MCH 26.9 L, MCHC 30.8 L, RDW Std Deviation 61.8 H, RDW Coeff of Marixa 19.8 H, Plt Count 251, MPV 8.6, Immature Gran % (Auto) 3.600 H, Neut % (Auto) 77.9 H, Lymph % (Auto) 8.9 L, [place] % (Auto) 9.3, Eos % (Auto) 0.1, Baso % (Auto) 0.2, Absolute Neuts (auto) 6.9, Absolute Lymphs (auto) 0.79 L, Nucleated RBC % 0 04/05/19 06:58: Sodium 140, Potassium 4.2, Chloride 109 H, Carbon Dioxide 26.0, Anion Gap 5, BUN 10, Creatinine 0.46 L, Estim Creat Clear Calc 122.13, Est GFR (MDRD) Af Amer 184, Est GFR (MDRD) Non-Af 152, BUN/Creatinine Ratio 21.9 H, Glucose 91, Calcium 8.0 L, Troponin I < 0.015 Discharge Diet: No Restrictions Discharge Activity: Return to Normal Activity Home Medications: Medications to take at Discharge Lorazepam [Ativan] 0.5 mg PO Q8H PRN 11/13/16 Levothyroxine [Synthroid] 75 mcg PO DAILY 01/16/19 predniSONE tablet 20 tab PO DAILY 01/16/19 Albuterol Aerosols [Ventolin Aerosols] 2.5 mg INHALATION Q4HWA.RT 04/04/19 Albuterol Inhaler [Ventolin Hfa] 1 - 2 puff INHALATION Q6H PRN 04/04/19 Atenolol 50 mg PO BID 04/04/19 Duloxetine HCl 30 mg PO DAILY 04/04/19 Gabapentin [Neurontin] 200 mg PO TID 04/04/19 Guaifenesin [Mucinex] 600 mg PO Q12H PRN PRN 04/04/19 Nystatin 5 ml PO 4X/DAY 04/04/19 Oxycodone Myristate [Xtampza ER] 27 mg PO Q12H 04/04/19 Sennosides/Docusate Sodium [Senna-S Tablet] 1 tab PO BID 04/04/19 Smz/Tmp Ds [Bactrim Ds] 1 tab PO MOWEFR 04/04/19 Apixaban [Eliquis] 10 mg PO BID #70 tab 04/05/19 Following Prescrptions Were Given to Patient: Apixaban [Eliquis] 10 mg PO BID #70 tab Transmission Status: Received by [address] Primary Care Physician: Michele Milner III, MD [Primary Care Provider] - Please follow up with your Primary Care Physician in: 1-2 weeks Please Follow Up With: Christopher Nicholas DO When: 1 week Please Follow Up With: Palliative care When: as needed Disposition: Home Minutes spent on discharge:: 35 Patient Condition:: Stable Medical Necessity - Tobacco Use Smoking Status: Former smoker Meaningful Use Info Meaningful Use Diagnoses (Choose all that apply): VTE - VTE Anticoag overlap given w/in hospital stay or rx'd at dc?: No Pt receive overlap for 5 days?: No Reason overlap not ordered, prescribed, or given for 5 days: Procedure Not Indicated <Cheko Soares - Last Filed: 04/05/19 14:36> Discharge Date and Diagnosis - Secondary Discharge Diagnosis Chronic Problems [facility]DC current use of anticoagulant (Chronic) History of DVT of the upper extremity Colon cancer metastasized to intrathoracic lymph node (Chronic) Hospital Course and Treatment Summary of Care Provided: This patient was seen in conjunction with Jason Rizo PA-C . I have independently interviewed and examined the patient and reviewed pertinent historical, laboratory, and other data. Please refer to Jason Rizo PA-C note for details of this patient's presentation, findings, and recommendations. I have reviewed Jason Rizo PA-C note and concur with documented findings. In brief,The patient is a 53 year old F with past medical history significant for stage IV colon cancer with mets to spine lung currently on chemo who presented with shortness of breath. CTA obtained demonstrated pulmonary embolism admitted to monitored bed for subsequent management. Hospital course: As documented above - Physical Exam Vitals/I&O's: Vital Signs Temp Pulse Resp BP Pulse Ox 97.9 F 78 16 112/71 94 04/05/19 10:00 04/05/19 11:08 04/05/19 11:08 04/05/19 10:00 04/05/19 10:00 Oxygen Flow Rate (L/min) 2 Oxygen Delivery Method Room Air Weight: 84.3 kg Body Mass Index (BMI) 31.8 Intake and Output for Last 24 Hours 04/03/19 04/04/19 04/05/19 23:59 23:59 23:59 Intake Total 1000 / 1000 Balance 1000 / 1000 Laboratory Results 04/04/19 20:40: WBC 13.0 H, RBC 4.21, Hgb 11.5 L, Hct 36.7 L, MCV 87.2, MCH 27.3, MCHC 31.3 L, RDW Std Deviation 61.2 H, RDW Coeff of Marixa 20.1 H, Plt Count 285, MPV 8.6, Immature Gran % (Auto) 3.800 H, Neut % (Auto) 79.8 H, Lymph % (Auto) 5.7 L, [place] % (Auto) 10.0, Eos % (Auto) 0.4, Baso % (Auto) 0.3, Absolute Neuts (auto) 10.4 H, Absolute Lymphs (auto) 0.74 L, Nucleated RBC % 0, Platelet Estimate ADEQUATE, RBC Morphology N CHROM, Anisocytosis 1+, Macrocytosis RARE 04/04/19 20:40: D-Dimer Quant (PE/DVT) 1.15 H* 04/04/19 20:40: Sodium 141, Potassium 3.9, Chloride 109 H, Carbon Dioxide 26.0, Anion Gap 6, BUN 15, Creatinine 0.72, Estim Creat Clear Calc 78.03, Est GFR (MDRD) Af Amer 109, Est GFR (MDRD) Non-Af 90, BUN/Creatinine Ratio 20.8 H, Glucose 108 H, Calcium 8.4 L, Troponin I < 0.015 04/05/19 01:32: Troponin I < 0.015 04/05/19 03:58: Troponin I < 0.015 04/05/19 06:58: WBC 8.9, RBC 4.01 L, Hgb 10.8 L, Hct 35.1 L, MCV 87.5, MCH 26.9 L, MCHC 30.8 L, RDW Std Deviation 61.8 H, RDW Coeff of Marixa 19.8 H, Plt Count 251, MPV 8.6, Immature Gran % (Auto) 3.600 H, Neut % (Auto) 77.9 H, Lymph % (Auto) 8.9 L, [place] % (Auto) 9.3, Eos % (Auto) 0.1, Baso % (Auto) 0.2, Absolute Neuts (auto) 6.9, Absolute Lymphs (auto) 0.79 L, Nucleated RBC % 0 04/05/19 06:58: Sodium 140, Potassium 4.2, Chloride 109 H, Carbon Dioxide 26.0, Anion Gap 5, BUN 10, Creatinine 0.46 L, Estim Creat Clear Calc 122.13, Est GFR (MDRD) Af Amer 184, Est GFR (MDRD) Non-Af 152, BUN/Creatinine Ratio 21.9 H, Glucose 91, Calcium 8.0 L, Troponin I < 0.015 Code Visit OBSV E&M: 81706 Observation care discharge
== END 2019-04-05 11:23 | disposition home or self-care (01) ==
LOC: ED 20:52 → PCU 23:39
PROVIDERS: Admitting Provider Student in an Organized Health Care Education/Training Program; Emergency Provider Emergency Medicine; PCP Family Medicine; Visit Provider Internal Medicine
DX: I26.99 Other pulmonary embolism without acute cor pulmonale (principal); C18.9 Malignant neoplasm of colon, unspecified; C77.1 Secondary and unspecified malignant neoplasm of intrathoracic lymph nodes; C78.01 Secondary malignant neoplasm of right lung; I10 Essential (primary) hypertension; C79.51 Secondary malignant neoplasm of bone; E03.9 Hypothyroidism, unspecified; Z86.718 Personal history of other venous thrombosis and embolism; Z79.899 Other long term (current) drug therapy; Z79.52 Long term (current) use of systemic steroids
CPT/HCPCS: 36415; 36591; 71275; 74022; 80048; 84484; 85025; 85379; 93005; 94640; 96361; 96374; 96375; 99218; 99284; J7030; Q9967; A4216; G0378